=== PATIENT | female | born 1990 | race American Indian/Alaskan Native ===

== ENCOUNTER 2017-12-01 19:18 | Observation (INO) | payer OTHER ==
[2017-12-01] MEDS ORDERED: Sodium Chloride 0.9% 1,000 ML IV STA (20:54)
--- NOTE | 2017-12-01 21:09 | ED PDOC ---
Arrival/HPI - General Chief Complaint: GI Problem Time Seen by Provider: 12/01/17 20:10 Historian: Patient - History of Present Illness Narrative History of Present Illness (Text): 12/01/17 21:08 26 year old female, whose [id number] with a recent 3 days ago, presents to the emergency department complaining of recurrent episodes of vomiting for the past couple weeks. Patient has not been eating, or able to keep anything down. She states she was and has a recent 3 days ago at [place]. Patient was started on antibiotics tetracycline. Also given misoprostol. Patient reports abdominal discomfort secondary to procedure, but denies any fever, chills, chest pain, shortness of breath, urinary symptoms, back pain, neck pain, headache, dizziness, or any other complaints. PMD: Dr. Taz Marcum Time/Duration: Other (couple weeks) Symptom Onset: Gradual Symptom Course: Unchanged Activities at Onset: Light Context: Home Past Medical History - Provider Review Nursing Documentation Reviewed: Yes - Psychiatric Hx Bipolar Disorder: Yes Hx Substance Use: No Family/Social History - Physician Review Nursing Documentation Reviewed: Yes Family/Social History: No Known Family HX Smoking Status: n Hx Alcohol Use: No Hx Substance Use: No Allergies/Home Meds Allergies/Adverse Reactions: Allergies oxcarbazepine [From Trileptal] Allergy (Verified 12/01/17 19:52) RASH quetiapine [From Seroquel] Allergy (Verified 12/01/17 19:52) RASH Home Medications: Home Meds Medication Instructions Recorded Confirmed No Known Home Med 12/01/17 12/01/17 Review of Systems - Physician Review All systems were reviewed & negative as marked: Yes - Review of Systems Constitutional: absent: Fevers, Other (Chills) Respiratory: absent: SOB Cardiovascular: absent: Chest Pain Gastrointestinal: Abdominal Pain, Vomiting. absent: Diarrhea Genitourinary Female: absent: Dysuria, Frequency, Hematuria Musculoskeletal: absent: Back Pain, Neck Pain Neurological: absent: Headache, Dizziness Physical Exam Vital Signs Reviewed: Yes Vital Signs Temp Pulse Resp BP Pulse Ox 12/01/17 23:41 67 17 139/76 100 12/01/17 19:43 98.2 F 66 18 133/68 99 Temperature: Afebrile Blood Pressure: Normal Pulse: Regular Respiratory Rate: Normal Appearance: Positive for: Well-Appearing, Non-Toxic, Comfortable Pain Distress: None Mental Status: Positive for: Alert and Oriented X 3 - Systems Exam Head: Present: Atraumatic, Normocephalic Pupils: Present: PERRL Extroacular Muscles: Present: EOMI Conjunctiva: Present: Normal Mouth: Present: Dry Neck: Present: Normal Range of Motion Respiratory/Chest: Present: Clear to Auscultation, Good Air Exchange. No: Respiratory Distress, Accessory Muscle Use Cardiovascular: Present: Regular Rate and Rhythm, Normal S1, S2. No: Murmurs Abdomen: Present: Tenderness (Minimal tenderness of the lower abdomen ), Normal Bowel Sounds. No: Distention, Peritoneal Signs, Rebound, Guarding Back: Present: Normal Inspection Upper Extremity: Present: Normal Inspection. No: Cyanosis, Edema Lower Extremity: Present: Normal Inspection. No: Edema Neurological: Present: GCS=15, CN II-XII Intact, Speech Normal Skin: Present: Warm, Dry, Normal Color. No: Rashes Psychiatric: Present: Alert, Oriented x 3, Normal Insight, Normal Concentration Medical Decision Making ED Course and Treatment: 12/01/17 21:08 Impression: 26 year old female presents complaining of recurrent episodes of vomiting and abdominal discomfort secondary to recent 3 days ago. Pt is [id number]. Plan: -- Labs -- Pepcid, IV Fluids, Zofran Inj -- Influenza A B -- Transvaginal US -- Reassess and disposition Progress Notes: EXAM: US Pelvis Complete, Transabdominal Dictated and Authenticated by: Sudhir Velez MD 12/01/2017 11:30 PM IMPRESSION: 1. Thickened, heterogeneous endometrium. RPOC not excluded. 12/02/17 00:42 Case discussed with resident and Dr. Heredia who is aware and agrees with the plan. Accepts patient into his service. 12/02/17 00:52 EKG shows NSR at 65 BPM normal EKG. Interpreted by me. - Lab Interpretations Lab Results: 12/01/17 21:00 12/01/17 21:00 Lab Results 12/01/17 21:00: Beta HCG, Quant 2020.30 H 12/01/17 21:00: WBC 15.8 H, RBC 4.66, Hgb 14.1, Hct 40.7, MCV 87.3, MCH 30.3, MCHC 34.6, RDW 13.1, Plt Count 300, MPV 9.1 12/01/17 21:00: Sodium 140, Potassium 2.7 L*, Chloride 98, Carbon Dioxide 28, Anion Gap 17, BUN 12, Creatinine 0.7, Est GFR ( Amer) > 60, Est GFR (Non- Af Amer) > 60, Random Glucose 110, Calcium 9.7, Total Bilirubin 1.2, AST 22, ALT 38, Alkaline Phosphatase 64, Total Protein 7.8, Albumin 4.2, Globulin 3.5, Albumin/Globulin Ratio 1.2, Lipase 72 12/01/17 21:00: Influenza Typ A,B (EIA) Negative for flu a/b I have reviewed the lab results: Yes - RAD Interpretation Radiology Orders: 12/01/17 20:53 PELVIS ULTRASOUND [US] Stat - Medication Orders Current Medication Orders: Potassium Chloride (Potassium Chloride 20 Meq/100 Ml) 20 meq in 100 mls @ 50 mls/hr IV ONCE ONE Stop: 12/02/17 02:34 Piperacillin Sod/Tazobactam Sod (Zosyn 3.375 In Ns 100ml) 100 mls @ 200 mls/hr IV STAT STA PRN Reason: Protocol Stop: 12/02/17 01:07 Discontinued Medications Famotidine (Pepcid) 20 mg IVP STAT STA Stop: 12/01/17 20:55 Last Admin: 12/01/17 21:38 Dose: 20 mg IVP Administration Document 12/01/17 21:38 IT (Rec: 12/01/17 21:38 IT [id number]) Charges for Administration # of IVP Administrations 1 Sodium Chloride (Sodium Chloride 0.9%) 1,000 mls @ 999 mls/hr IV .Q1H1M STA Stop: 12/01/17 21:54 Last Admin: 12/01/17 21:34 Dose: 999 mls/hr eMAR Start Stop Document 12/01/17 21:34 IT (Rec: 12/01/17 21:34 IT [id number]) Intravenous Solution Start Date 12/01/17 Start Time 21:34 Potassium Chloride (Potassium Chloride 20 Meq/100 Ml) 20 meq in 100 mls @ 50 mls/hr IV ONCE ONE Stop: 12/02/17 00:19 Last Admin: 12/01/17 22:32 Dose: 50 mls/hr eMAR Start Stop Document 12/01/17 22:32 IT (Rec: 12/01/17 22:34 IT [id number]) Intravenous Solution Start Date 12/01/17 Start Time 22:34 End Date 12/01/17 Ondansetron HCl (Zofran Inj) 4 mg IVP ONCE ONE Stop: 12/01/17 20:55 Last Admin: 12/01/17 21:38 Dose: 4 mg IVP Administration Document 12/01/17 21:38 IT (Rec: 12/01/17 21:38 IT [id number]) Charges for Administration # of IVP Administrations 1 - Scribe Statement The provider has reviewed the documentation as recorded by the Dudley Quach Provider Scribe Attestation: All medical record entries made by the Scribe were at my direction and personally dictated by me. I have reviewed the chart and agree that the record accurately reflects my personal performance of the history, physical exam, medical decision making, and the department course for this patient. I have also personally directed, reviewed, and agree with the discharge instructions and disposition. Disposition/Present on Arrival - Present on Arrival Any Indicators Present on Arrival: No History of DVT/PE: No History of Uncontrolled Diabetes: No Urinary Catheter: No History of Decub. Ulcer: No History Surgical Site Infection Following: None - Disposition Have Diagnosis and Disposition been Completed?: Yes Diagnosis: Intractable vomiting, Hypokalemia, Dehydration Disposition: HOSPITALIZED Disposition Time: 00:47 Patient Plan: Admission Patient Problems: Current Active Problems Problem Status Onset Dehydration Acute Hypokalemia Acute Intractable vomiting Acute Condition: STABLE Referrals: Vivi Marcum MD [Primary Care Provider] - Follow up with primary Forms: Myer (Hebrew)
[2017-12-01 21:32] LABS: HEMOGLOBIN 14.1 g/dL (12.0-16.0); MEAN CELL VOLUME 87.3 fl (80.0-105.0); MEAN CORPUSCULAR HEMOGLOBIN 30.3 pg (25.0-35.0); MEAN CORPUSCULAR HGB CONC 34.6 g/dl (31.0-37.0); MEAN PLATELET VOLUME 9.1 fl (7.0-11.0); RBC 4.66 10^6/uL (3.5-6.1); RED CELL DISTRIBUTION WIDTH 13.1 % (11.5-14.5); WHITE BLOOD COUNT 15.8 10^3/ul (4.5-11.0)
[2017-12-01 22:04] LABS: ALB/GLOB RATIO 1.2 (1.1-1.8); ALBUMIN 4.2 g/dL (3.0-4.8); ALT/SGPT 38 U/L (7-56); AST/SGOT 22 U/L (14-36); BLOOD UREA NITROGEN 12 mg/dL (7-21); CALCIUM 9.7 mg/dL (8.4-10.5); GFR AFRICAN-AMERICAN > 60; GFR NON-AFRICAN AMERICAN > 60; LIPASE 72 U/L (23-300)
--- NOTE | 2017-12-01 23:30 | US ---
EXAM: US Pelvis Complete, Transabdominal CLINICAL HISTORY: 26 years old, female; Signs and symptoms; Other: Bleeding clots S/P top 4 days; Additional info: S/P elective TECHNIQUE: Real-time transabdominal pelvic ultrasound (complete) with image documentation. COMPARISON: No relevant prior studies available. FINDINGS: Uterus/cervix: Uterus measures 9.1 x 6.6 x 8.6 cm in size. No myometrial mass. Endometrium: Up to 2.2 cm in thickness. Heterogeneous. No significant internal vascularity. Right ovary: 3.4 x 2.5 x 3.0 cm in size. No mass. Normal flow. Left ovary: 2.7 x 2.2 x 3.2 cm in size. No mass. Normal flow. Free fluid: No significant free fluid. Bladder: Unremarkable as visualized. IMPRESSION: 1. Thickened, heterogeneous endometrium. RPOC not excluded.
[2017-12-02] MEDS ORDERED: Piperacillin/Tazobact 3.375 gm 100 ML IV STA (00:38)
--- NOTE | 2017-12-02 02:02 | CP.PCM.HP ---
<Rajesh Roberson - Last Filed: 12/02/17 02:38> History of Present Illness - History of Present Illness History of Present Illness: Rosalinda Roberson PGY-1 H&P CC: Nausea and vomiting HPI: Patient is a 26 year old female [id number] who presents with a 3 to 4 week history of intractable nausea and vomiting. Patient reports that beginning 3 to 4 weeks ago she began experiencing nausea and vomiting yellow to clear non bilious vomit. She reports being unable to keep either fluids or food down. She indicates that at the onset of her symptoms she was . Patient reports 3 days prior to arrival she [place] [facility] indicated this is her sixth . She reports no complications after procedure. Patient denies any previous similar episodes of nausea and vomiting or other complications following previous elective abortions. Patient reports abdominal discomfort secondary to procedure and continued contraction of muscles from vomiting. Patient reports subjective fever , chills and sore throat. Patient denies hemetemesis or coffee ground emesis. Patient denies chest pain, shortness of breath, dysuria, headache, dizziness. PMH: Denies PSH: Abortionx6, most recent 11/28/2016 SocHx: Denies tobacco and ETOH, ID: Postive THC ALL: Seroquel, Trilleptal reports urticaria Meds: Misoprostol, Tetracycline Present on Admission - Present on Admission Any Indicators Present on Admission: No Review of Systems - Constitutional Constitutional: Chills. absent: Fever, Night Sweats - EENT Eyes: absent: Blurred Vision, Change in Vision Ears: absent: Ear Discharge Nose/Mouth/Throat: Dry Mouth. absent: Epistaxis, Nasal Congestion - Cardiovascular Cardiovascular: absent: Chest Pain, Chest Pain at Rest, Dyspnea - Respiratory Respiratory: absent: Cough, Dyspnea - Gastrointestinal Gastrointestinal: Abdominal Pain, Constipation, Nausea, Vomiting. absent: Belching, Diarrhea - Genitourinary Genitourinary: Hematuria (likely secondary to D&C). absent: Dysuria - Musculoskeletal Musculoskeletal: absent: Arthralgias, Back Pain, Myalgias, Neck Pain - Neurological Neurological: Weakness. absent: Dizziness, Numbness, Focal Weakness - Psychiatric Psychiatric: absent: Anxiety, Depression Past Patient History - Past Social History Smoking Status: n Alcohol: None Drugs: Cannabis - PSYCHIATRIC Hx Bipolar Disorder: Yes Hx Substance Use: No Meds Allergies/Adverse Reactions: Allergies Allergy/AdvReac Type Severity Reaction Status Date / Time oxcarbazepine Allergy RASH Verified 12/01/17 19:52 [From Trileptal] quetiapine [From Seroquel] Allergy RASH Verified 12/01/17 19:52 Physical Exam - Constitutional Appears: Non-toxic - Head Exam Head Exam: ATRAUMATIC, NORMAL INSPECTION, NORMOCEPHALIC - Eye Exam Eye Exam: EOMI, PERRL - ENT Exam ENT Exam: Mucous Membranes Dry - Neck Exam Neck exam: Positive for: Full Rom - Respiratory Exam Respiratory Exam: Clear to Auscultation Bilateral, NORMAL BREATHING PATTERN. absent: Rhonchi, Wheezes - Cardiovascular Exam Cardiovascular Exam: REGULAR RHYTHM, +S1, +S2. absent: Rubs, Systolic Murmur - GI/Abdominal Exam GI & Abdominal Exam: Diminished Bowel Sounds, Soft, Tenderness (diffuse, suprapubic). absent: Guarding, Rigid - Extremities Exam Extremities exam: Positive for: normal inspection. Negative for: pedal edema - Back Exam Back exam: absent: CVA tenderness (L), CVA tenderness (R) - Neurological Exam Neurological exam: Alert, CN II-XII Intact, Oriented x3 Additional comments: motor and sensory grossly intact - Psychiatric Exam Psychiatric exam: Normal Affect, Normal Mood - Skin Skin Exam: Dry, Warm Results - Vital Signs Recent Vital Signs: Last Vital Signs Temp 98.2 F 12/01/17 19:43 Pulse 67 12/01/17 23:41 Resp 17 12/01/17 23:41 BP 139/76 12/01/17 23:41 Pulse Ox 100 12/01/17 23:41 - Labs Result Diagrams: 12/01/17 21:00 12/01/17 21:00 Labs: Laboratory Results - last 24 hr 12/01/17 12/01/17 12/01/17 21:00 21:00 21:00 WBC 15.8 H RBC 4.66 Hgb 14.1 Hct 40.7 MCV 87.3 MCH 30.3 MCHC 34.6 RDW 13.1 Plt Count 300 MPV 9.1 Sodium 140 Potassium 2.7 L* Chloride 98 Carbon Dioxide 28 Anion Gap 17 BUN 12 Creatinine 0.7 Est GFR ( Amer) > 60 Est GFR (Non-Af Amer) > 60 Random Glucose 110 Calcium 9.7 Total Bilirubin 1.2 AST 22 ALT 38 Alkaline Phosphatase 64 Total Protein 7.8 Albumin 4.2 Globulin 3.5 Albumin/Globulin Ratio 1.2 Lipase 72 Beta HCG, Quant Influenza Typ A,B (EIA) Negative for flu a/b 12/01/17 21:00 WBC RBC Hgb Hct MCV MCH MCHC RDW Plt Count MPV Sodium Potassium Chloride Carbon Dioxide Anion Gap BUN Creatinine Est GFR ( Amer) Est GFR (Non-Af Amer) Random Glucose Calcium Total Bilirubin AST ALT Alkaline Phosphatase Total Protein Albumin Globulin Albumin/Globulin Ratio Lipase Beta HCG, Quant 2020.30 H Influenza Typ A,B (EIA) Assessment & Plan - Assessment and Plan (Free Text) Assessment: Patient is a 26 year old female [id number] who presents by with a 3 to 4 week history of intractable nausea and vomiting. Patient reports poor oral intake and constipation with last bowel movement possible 10 days prior to admission. Patient found to be hypokalemic in ED with replacement of potassium. Patient undergoing abdominal CT to r/o obstruction. Patient will be admitted for further medical evaluation and treatment. Plan: 1. Intractable nausea and vomiting - etiology: appendicits vs. obstruction vs. hyperemesis gravidum s/p D&C vs. THC related - Reglan, Zofran - IVF NS @150ml/hr - NPO - TSH, Free T4 - f/u Abdominal and Pelvis CT 2. Hypokalemia - Potassium 2.8 on admit, K 20mg given - 20mg K riders x2 - Mg, Phos - f/u AM labs 3. Abdominal/Suprapubic pain - s/p elective - Abdominal/Pelvis CT r/o obstruction - Toradol 15mg Q6h - ACCESS SERVICES REPRESENTATIVE consult, appreciate recs 4. Leukocytosis - afebrile, VSS - s/p elective - f/u UA GI ppx: Protonix DVT ppx: Alexis score 4, SCD Case and plan discussed with attending - Date & Time Date: 12/02/17 Time: 02:06 <Mau Coburn MD - Last Filed: 12/02/17 11:14> Results - Vital Signs Recent Vital Signs: Last Vital Signs Temp 100.1 F H 12/02/17 06:00 Pulse 77 12/02/17 06:00 Resp 20 12/02/17 06:00 BP 120/75 12/02/17 06:00 Pulse Ox 100 12/02/17 06:00 - Labs Result Diagrams: 12/02/17 07:00 12/02/17 07:00 Labs: Laboratory Results - last 24 hr 12/02/17 12/02/17 12/02/17 07:00 07:00 07:00 WBC 11.6 H D RBC 4.15 Hgb 12.4 Hct 36.5 MCV 88.0 MCH 29.9 MCHC 34.0 RDW 13.2 Plt Count 268 MPV 9.1 Gran % 59.8 Lymph % (Auto) 29.8 Gooding % (Auto) 9.2 H Eos % (Auto) 1.0 L Baso % (Auto) 0.2 Gran # 6.92 H Lymph # (Auto) 3.5 H Gooding # (Auto) 1.1 H Eos # (Auto) 0.1 Baso # (Auto) 0.02 PT 15.0 H INR 1.30 H APTT Sodium 139 Potassium 3.1 L Chloride 103 Carbon Dioxide 27 Anion Gap 13 BUN 9 Creatinine 0.7 Est GFR ( Amer) > 60 Est GFR (Non-Af Amer) > 60 Random Glucose 94 Calcium 8.8 Phosphorus 2.9 Magnesium 2.1 Total Bilirubin 1.4 H AST 25 ALT 33 Alkaline Phosphatase 51 Total Protein 6.5 Albumin 3.4 Globulin 3.1 Albumin/Globulin Ratio 1.1 12/02/17 09:30 WBC RBC Hgb Hct MCV MCH MCHC RDW Plt Count MPV Gran % Lymph % (Auto) Gooding % (Auto) Eos % (Auto) Baso % (Auto) Gran # Lymph # (Auto) Gooding # (Auto) Eos # (Auto) Baso # (Auto) PT INR APTT 29.5 Sodium Potassium Chloride Carbon Dioxide Anion Gap BUN Creatinine Est GFR ( Amer) Est GFR (Non-Af Amer) Random Glucose Calcium Phosphorus Magnesium Total Bilirubin AST ALT Alkaline Phosphatase Total Protein Albumin Globulin Albumin/Globulin Ratio Attending/Attestation - Attestation I have personally seen and examined this patient.: Yes I have fully participated in the care of the patient.: Yes I have reviewed all pertinent clinical information: Yes Notes (Text): -I agree with the above H&P completed by the resident physician with the following additions and/or changes: -The patient is a 26 year old woman, [id number], who is being admitted with 3 weeks of worsening intractable N/V (non-bilious, non-bloody), associated RLQ abdominal pain (worse with cough) and 1 week of constipation (with only minimal passing of gas). She also reports subjective fevers and chills. Of note, 4 days ago, she underwent a reportedly uncomplicated, elective [place] [facility] [place] 10 weeks [place]) (using Misoprostol). Her symptoms remained unchanged after the procedure. MRP CONTROLLER has been consulted for further evaluation. She denies CP, SOB, dysuria or cough. Incidentally, on CT-A/P done this evening, she was found to have acute appendicitis. Therefore, empiric IV Flagyl and Ceftriaxone will be started and the patient will be kept NPO and on IVFs. General surgery has been consulted. Also, her hypokalemia (due to recurrent vomiting) will be replenished with IV KCL.
[2017-12-02] MEDS: Sodium Chloride 0.9% 1,000 ML IV SCH ×2 (02:15→08:28)
--- NOTE | 2017-12-02 02:24 | CT ---
EXAM: CT Abdomen and Pelvis Without Intravenous Contrast CLINICAL HISTORY: 26 years old, female; Signs and symptoms; Nausea; Prior surgery; Surgery type: ; Additional info: R/O obstruction TECHNIQUE: Axial computed tomography images of the abdomen and pelvis without intravenous contrast. All CT scans at this facility use one or more dose reduction techniques, viz.: automated exposure control; ma/kV adjustment per patient size (including targeted exams where dose is matched to indication; i.e. head); or iterative reconstruction technique. Coronal and sagittal reformatted images were created and reviewed. COMPARISON: US - PELVIS ULTRASOUND 2017-12-01 22:42 FINDINGS: Limitations: Lack of intravenous contrast. Motion artifact - mild. Lower thorax: No acute findings. ABDOMEN: Liver: Unremarkable. Gallbladder and bile ducts: No calcified stones. No ductal dilation. Pancreas: Unremarkable. No ductal dilation. Spleen: No splenomegaly. Adrenals: No mass. Kidneys and ureters: Lobulation of kidneys. No renal calculi. No hydronephrosis. Stomach and bowel: No definite mural thickening. No obstruction. Appendix: Enlarged distal appendix, roughly measuring up to 1.5 cm in diameter. Appendicolith. Mild stranding about appendix. PELVIS: Bladder: Unremarkable. No stones. Reproductive: Increased density within endometrial canal, likely hemorrhage/hematoma. ABDOMEN and PELVIS: Intraperitoneal space: Trace free fluid within pelvis. No free air. Bones/joints: No acute fracture. Soft tissues: Unremarkable. Vasculature: Unremarkable. No aneurysm. Lymph nodes: No pathologically enlarged lymph nodes. IMPRESSION: 1. Acute appendicitis. 2. Incidental/non-acute findings are described above.
[2017-12-02] MEDS ORDERED: Morphine 2 mg/ml ISec IVP PRN (02:41)
[2017-12-02] MEDS ORDERED: cefTRIAXone 1 gm 1 GM/100 ML BAG IVPB SCH ×2 (02:45→06:00)
[2017-12-02] MEDS: metroNIDAZOLE IV 500 mg/100 ml 500 MG/100 ML BAG IVPB SCH ×4 (03:27→20:59)
[2017-12-02 05:03] LABS: FREE T4 1.15 ng/dL (0.78-2.19)
--- NOTE | 2017-12-02 05:38 | CP.PCM.CON ---
<Jeremy Hoffman - Last Filed: 12/02/17 05:40> History of Present Illness - History of Present Illness History of Present Illness: Surgery: Dr. Pérez CC: Abd pain HPI: 26F [id number] w. recent 3 days ago, presents w. lower abd pain x 3 weeks. Pt states that the pain has been constant and described as a burning pain. The pain radiates to her back. She denies any alleviating or aggravating factors. The pain has been accompanied by multiple episodes of N/V and occasional diarrhea. She reports decreased appetite. She states that she been to the hospital 3xs in the past week and a half but was only given zofran and CT was done due to her being . CT scan was done in ED upon this admission and showed an enlarged appendix w. a fecalith. PMH: none PSH: none Meds: none ALL: seroqeul, oxcarbazepine Social: +Marijuana, no ETOH/tobacco Fhx: Non-contributory Review of Systems - Review of Systems All systems: reviewed and no additional remarkable complaints except (HPI) Past Patient History - Past Social History Smoking Status: Current Some Days Smoker - CARDIAC Hx Cardiac Disorders: No (denies) - PULMONARY Hx Respiratory Disorders: No (denies) - NEUROLOGICAL Hx Neurological Disorder: No (denies) - HEENT Hx HEENT Problems: No (denies) - RENAL Hx Chronic Kidney Disease: No (denies) - ENDOCRINE/METABOLIC Hx Endocrine Disorders: No (denies) - HEMATOLOGICAL/ONCOLOGICAL Hx Blood Disorders: No (denies) - INTEGUMENTARY Hx Dermatological Problems: No (denies) - MUSCULOSKELETAL/RHEUMATOLOGICAL Hx Falls: No - GASTROINTESTINAL Hx Gastrointestinal Disorders: No (denies) - GENITOURINARY/GYNECOLOGICAL Hx Genitourinary Disorders: No ( x3) - PSYCHIATRIC Hx Substance Use: No - SURGICAL HISTORY Hx Surgeries: No (denies) Meds Allergies/Adverse Reactions: Allergies Allergy/AdvReac Type Severity Reaction Status Date / Time oxcarbazepine Allergy RASH Verified 12/01/17 19:52 [From Trileptal] quetiapine [From Seroquel] Allergy RASH Verified 12/01/17 19:52 - Medications Medications: Current Medications Potassium Chloride (Potassium Chloride 20 Meq/100 Ml) 20 meq in 100 mls @ 50 mls/hr IVPB Q2H [facility] Stop: 12/02/17 05:44 Last Admin: 12/02/17 03:39 Dose: 50 mls/hr Sodium Chloride (Sodium Chloride 0.9%) 1,000 mls @ 150 mls/hr IV .Q6H40M [facility] Last Admin: 12/02/17 02:15 Dose: 150 mls/hr Metronidazole (Flagyl) 500 mg in 100 mls @ 100 mls/hr IVPB Q8 [facility] PRN Reason: Protocol Last Admin: 12/02/17 05:00 Dose: Not Given Ceftriaxone Sodium (Rocephin 1 Gram Ivpb) 1 gm in 100 mls @ 100 mls/hr IVPB DAILY [facility] PRN Reason: Protocol Metoclopramide HCl (Reglan) 10 mg IVP Q8 [facility] Last Admin: 12/02/17 05:00 Dose: Not Given Morphine Sulfate (Morphine) 2 mg IVP Q4 PRN PRN Reason: Pain, severe (8-10) Ondansetron HCl (Zofran Inj) 4 mg IVP Q4H PRN PRN Reason: Nausea/Vomiting Pantoprazole Sodium (Protonix Inj) 40 mg IVP DAILY [facility] Physical Exam - Constitutional Appears: Non-toxic, No Acute Distress - Head Exam Head Exam: ATRAUMATIC, NORMOCEPHALIC - Eye Exam Eye Exam: EOMI Pupil Exam: PERRL - ENT Exam ENT Exam: Mucous Membranes Moist, Normal External Ear Exam - Respiratory Exam Respiratory Exam: NORMAL BREATHING PATTERN. absent: Accessory Muscle Use, Respiratory Distress - GI/Abdominal Exam GI & Abdominal Exam: Rebound, Soft, Tenderness (RLQ). absent: Distended, Firm, Guarding, Rigid - Extremities Exam Extremities exam: Negative for: calf tenderness, pedal edema - Neurological Exam Neurological exam: Alert, Oriented x3 - Psychiatric Exam Psychiatric exam: Normal Affect, Normal Mood - Skin Skin Exam: Dry, Normal Color, Warm Results - Vital Signs Recent Vital Signs: Last Vital Signs Temp 99.4 F 12/02/17 04:00 Pulse 83 12/02/17 04:00 Resp 18 12/02/17 04:00 BP 144/78 12/02/17 02:57 Pulse Ox 99 12/02/17 04:00 - Labs Result Diagrams: 12/01/17 21:00 12/01/17 21:00 - Imaging and Cardiology CT scan - chest Status: Image reviewed by me, Report reviewed by me Assessment & Plan - Assessment and Plan (Free Text) Assessment: 26F w. appendicitis -will need OR, timing to be determined -correct electrolytes -IVF -abx -pain meds -will d/w attending Dalton PGY3 <Chandu Pérez - Last Filed: 12/05/17 14:45> Results - Vital Signs Recent Vital Signs: Last Vital Signs Temp 97.2 F L 12/03/17 11:56 Pulse 69 12/03/17 18:00 Resp 18 12/03/17 11:56 BP 138/83 12/03/17 11:56 Pulse Ox 99 12/03/17 11:56 - Labs Result Diagrams: 12/03/17 06:30 12/03/17 06:30 Attending/Attestation - Attestation I have personally seen and examined this patient.: Yes I have fully participated in the care of the patient.: Yes I have reviewed all pertinent clinical information: Yes Notes (Text): Pt was seen and examined at beside Agree with above note and assessment Pt with RLQ pain and tenderness Pt is s/p recent Labs and radiology reviewed Ass: Acute appendicitis with leucocytosis Plan : OR for Lap Appendectomy possible Open Consent IV antibiotics Plan d.w pt in detail Risk and benefit explained in detail.
[2017-12-02 07:31] LABS: INR 1.3 (0.93-1.08)
[2017-12-02 07:34] LABS: BASO # 0.02 K/mm3 (0.0-2.0); BASO % 0.2 % (0.0-3.0); EOS # 0.1 (0.0-0.7); GRAN # 6.92 (1.4-6.5); GRAN % 59.8 % (50.0-68.0); HEMOGLOBIN 12.4 g/dL (12.0-16.0); LYMPH # 3.5 (1.2-3.4); LYMPH % 29.8 % (22.0-35.0); MEAN CORPUSCULAR HEMOGLOBIN 29.9 pg (25.0-35.0); MEAN PLATELET VOLUME 9.1 fl (7.0-11.0); MONO # 1.1 (0.1-0.6); MONO % 9.2 % (1.0-6.0); RBC 4.15 10^6/uL (3.5-6.1); RED CELL DISTRIBUTION WIDTH 13.2 % (11.5-14.5); WHITE BLOOD COUNT 11.6 10^3/ul (4.5-11.0)
[2017-12-02 07:47] LABS: ALB/GLOB RATIO 1.1 (1.1-1.8); ALBUMIN 3.4 g/dL (3.0-4.8); ALT/SGPT 33 U/L (7-56); AST/SGOT 25 U/L (14-36); BLOOD UREA NITROGEN 9 mg/dL (7-21); CALCIUM 8.8 mg/dL (8.4-10.5); GFR AFRICAN-AMERICAN > 60; GFR NON-AFRICAN AMERICAN > 60
[2017-12-02] MEDS: Potassium Chloride 20 mEq ER Tab PO STA ×2 (08:15→08:27)
[2017-12-02] MEDS ORDERED: Potassium Chloride 40 mEq/30 ml LIQ UD PO ONE ×2 (08:58→18:09)
[2017-12-02] MEDS: cefTRIAXone 1 gm 1 GM/100 ML BAG IVPB SCH (09:46)
[2017-12-02 11:35] LABS: URINE BILIRUBIN SMALL (NEGATIVE); URINE BLOOD LARGE (NEGATIVE); URINE GLUCOSE (UA) NEGATIVE (NEGATIVE); URINE LEUKOCYTE ESTERASE TRACE Leu/uL (NEGATIVE); URINE PROTEIN 30 mg/dL (<30 mg/dL)
[2017-12-02 11:38] LABS: URINE APPEARANCE CLEAR (CLEAR); URINE COLOR DARK YELLOW (YELLOW)
[2017-12-02 11:46] LABS: URINE RBC 25 - 30 /hpf (0-2)
[2017-12-02 11:47] LABS: URINE BACTERIA MANY (NEG)
[2017-12-02 12:04] LABS: BLOOD UREA NITROGEN 8 mg/dL (7-21); CALCIUM 9.1 mg/dL (8.4-10.5); GFR AFRICAN-AMERICAN > 60; GFR NON-AFRICAN AMERICAN > 60
--- NOTE | 2017-12-02 12:32 | CARD ---
APPROVED REPORT EKG Measurement Heart [id number] CT [id number] [id number] <Conclusion> Normal sinus rhythm Minimal voltage criteria for LVH, may be normal variant Borderline ECG
[2017-12-02 15:33] LABS: BLOOD UREA NITROGEN 6 mg/dL (7-21); CALCIUM 9.4 mg/dL (8.4-10.5); GFR AFRICAN-AMERICAN > 60; GFR NON-AFRICAN AMERICAN > 60
[2017-12-02] MEDS ORDERED: Bupivacaine 0.5% Inj(30mL) ONE (15:45)
[2017-12-02] MEDS ORDERED: Propofol 10 mg/ml Inj (20 ML) ONE ×2 (16:28→17:37)
[2017-12-02] MEDS ORDERED: Rocuronium 10 mg/ml (5 ml) ONE (16:28)
[2017-12-02] MEDS ORDERED: Succinylcholine 200 mg/10 ml Inj IV ONE (16:28)
[2017-12-02] MEDS ORDERED: Midazolam 2 MG/2 ML VIAL ONE (16:29)
[2017-12-02] MEDS ORDERED: Neostigmine Methylsulfate 3mg/3ml Syringe IV ONE (17:30)
[2017-12-02] MEDS ORDERED: HYDROmorphone 0.5 mg/0.5 ml ISec IVP PRN (18:01)
--- NOTE | 2017-12-02 18:01 | PCM.SURG1 ---
Surgeon's Initial Post Op Note - Surgeon's Notes Surgeon: Dr. Pérez Portfolio Mgr: fransico Villanueva PGY2 Type of Anesthesia: General Endo, Local Pre-Operative Diagnosis: Acute appendicitis Operative Findings: small amount of pelvic fluids. Inflammged appendix. Appendicolith Post-Operative Diagnosis: Acute appendicitis Operation Performed: Laparoscopic appendectomy Specimen/Specimens Removed: appendix Estimated Blood Loss: EBL {In ML}: 10 Blood Products Given: N/A Drains Used: No Drains Post-Op Condition: Good Date of Surgery/Procedure: 12/02/17 Time of Surgery/Procedure: 18:01
[2017-12-02] MEDS ORDERED: Morphine 4 mg/ml ISec IVP PRN (18:02)
[2017-12-02] MEDS ORDERED: DiphenhydrAMINE 50 mg/ml Inj IVP STA ×2 (20:40→20:47)
[2017-12-03] MEDS: Oxycodone/Acetaminophen 5/325 mg Tab PO PRN ×2 (00:46→11:34)
[2017-12-03] MEDS: metroNIDAZOLE IV 500 mg/100 ml 500 MG/100 ML BAG IVPB SCH ×2 (05:24→16:59)
[2017-12-03 06:59] VITALS: RESP 18; O2SAT 99
[2017-12-03 07:16] LABS: HEMOGLOBIN 12.9 g/dL (12.0-16.0); MEAN CELL VOLUME 89.1 fl (80.0-105.0); MEAN CORPUSCULAR HEMOGLOBIN 29.9 pg (25.0-35.0); MEAN CORPUSCULAR HGB CONC 33.6 g/dl (31.0-37.0); MEAN PLATELET VOLUME 9.2 fl (7.0-11.0); RBC 4.31 10^6/uL (3.5-6.1); RED CELL DISTRIBUTION WIDTH 13.4 % (11.5-14.5)
[2017-12-03 07:32] LABS: BLOOD UREA NITROGEN 6 mg/dL (7-21); CALCIUM 9.2 mg/dL (8.4-10.5); GFR AFRICAN-AMERICAN > 60; GFR NON-AFRICAN AMERICAN > 60
[2017-12-03] MEDS ORDERED: Potassium Chloride 40 mEq/30 ml LIQ UD PO ONE (07:36)
--- NOTE | 2017-12-03 08:36 | CARD ---
APPROVED REPORT EKG Measurement Heart [id number] <Conclusion> Unusual P axis and short [place], probable junctional rhythm
[2017-12-03] MEDS ORDERED: Potassium Chloride 20 mEq ER Tab PO STA (08:47)
[2017-12-03] MEDS: cefTRIAXone 1 gm 1 GM/100 ML BAG IVPB SCH (09:11)
[2017-12-03] MEDS: POLYETHYLENE GLYCOL 3350 17 GM/Dose PACKET PO SCH ×2 (09:20→16:59)
--- NOTE | 2017-12-03 11:11 | CP.PCM.PN ---
<Don Villanueva - Last Filed: 12/03/17 11:06> Subjective - Date & Time of Evaluation Date of Evaluation: 12/03/17 Time of Evaluation: 11:07 - Subjective Subjective: Surgery Pt s&e. Pt underwent surgery yesterday. She tolerated it well. C/O pain. Controlled with pain med. Denies F/C/N/V/D/CP/SOB. + void. + Tolerating diet. + ambulating. Objective - Vital Signs/Intake and Output Vital Signs (last 24 hours): Temp Pulse Resp BP Pulse Ox 98.5 F 77 18 127/57 L 99 12/03/17 06:00 12/03/17 10:00 12/03/17 06:00 12/03/17 06:00 12/03/17 06:00 Intake and Output: 12/03/17 12/03/17 06:59 18:59 Intake Total 1675 120 Output Total 600 Balance 1675 -480 - Medications Medications: Current Medications Docusate Sodium (Colace) 100 mg PO BID [facility] Last Admin: 12/03/17 09:11 Dose: 100 mg Metronidazole (Flagyl) 500 mg in 100 mls @ 100 mls/hr IVPB Q8 [facility] PRN Reason: Protocol Last Admin: 12/03/17 05:24 Dose: 100 mls/hr Ceftriaxone Sodium (Rocephin 1 Gram Ivpb) 1 gm in 100 mls @ 100 mls/hr IVPB DAILY [facility] PRN Reason: Protocol Last Admin: 12/03/17 09:11 Dose: 100 mls/hr Potassium Chloride 20 meq/ (Sodium Chloride) 1,010 mls @ 125 mls/hr IV .Q8H5M [facility] Last Admin: 12/03/17 06:35 Dose: 125 mls/hr Ondansetron HCl (Zofran Inj) 4 mg IVP Q4H PRN PRN Reason: Nausea/Vomiting Last Admin: 12/02/17 10:35 Dose: 4 mg Oxycodone/Acetaminophen (Percocet 5/325 Mg Tab) 2 tab PO Q4H PRN PRN Reason: Pain, Mild (1-3) Stop: 12/05/17 18:04 Last Admin: 12/03/17 00:46 Dose: 2 tab Pantoprazole Sodium (Protonix Inj) 40 mg IVP DAILY [facility] Last Admin: 12/03/17 09:11 Dose: 40 mg Polyethylene Glycol (Miralax) 17 gm PO BID [facility] Last Admin: 12/03/17 09:20 Dose: 17 gm - Labs Labs: 12/03/17 06:30 12/03/17 06:30 PT 15.0 SECONDS (9.4-12.5) H 12/02/17 07:00 INR 1.30 (0.93-1.08) H 12/02/17 07:00 APTT 29.5 Seconds (25.1-36.5) 12/02/17 09:30 - Constitutional Appears: No Acute Distress - Head Exam Head Exam: ATRAUMATIC, NORMAL INSPECTION, NORMOCEPHALIC - Eye Exam Eye Exam: EOMI, Normal appearance, PERRL Pupil Exam: NORMAL ACCOMODATION, PERRL - ENT Exam ENT Exam: Mucous Membranes Moist, Normal Exam - Neck Exam Neck Exam: Full ROM, Normal Inspection. absent: Lymphadenopathy - Respiratory Exam Respiratory Exam: Clear to Ausculation Bilateral, NORMAL BREATHING PATTERN - Cardiovascular Exam Cardiovascular Exam: REGULAR RHYTHM, +S1, +S2. absent: Murmur - GI/Abdominal Exam GI & Abdominal Exam: Soft, Tenderness, Normal Bowel Sounds. absent: Distended, Firm, Guarding, Rigid, Hernia, Mass, Organomegaly, Pulsatile Mass, Rebound - Extremities Exam Extremities Exam: Full ROM, Normal Capillary Refill, Normal Inspection. absent : Joint Swelling, Pedal Edema - Back Exam Back Exam: NORMAL INSPECTION - Neurological Exam Neurological Exam: Alert, Awake, CN II-XII Intact, Normal Gait, Oriented x3 - Psychiatric Exam Psychiatric exam: Normal Affect, Normal Mood - Skin Skin Exam: Dry, Intact, Normal Color, Warm Assessment and Plan - Assessment and Plan (Free Text) Assessment: POD 1 s/p lap appy Plan: Clear for DC for surgical standpoint FOllow up with Dr. Pérez in 1-2 weeks Take ABX with meal for 7 days. Ok to take shower. Take bandaid off Keep steristrips on No heavy lifting for [address] Pérez <Chandu Pérez - Last Filed: 12/05/17 14:49> Objective - Vital Signs/Intake and Output Vital Signs (last 24 hours): Temp Pulse Resp BP Pulse Ox 97.2 F L 69 18 138/83 99 12/03/17 11:56 12/03/17 18:00 12/03/17 11:56 12/03/17 11:56 12/03/17 11:56 - Labs Labs: 12/03/17 06:30 12/03/17 06:30 PT 15.0 SECONDS (9.4-12.5) H 12/02/17 07:00 INR 1.30 (0.93-1.08) H 12/02/17 07:00 APTT 29.5 Seconds (25.1-36.5) 12/02/17 09:30 Attending/Attestation - Attestation I have fully participated in the care of the patient.: Yes I have reviewed all pertinent clinical information, including history, physical exam and plan: Yes Notes (Text): Pt is improving clinically Reg diet DC home with Po cipro and flagyl for 1 week f.u as out pt Local wound care Plan d/w primary team.
[2017-12-03 11:57] VITALS: BP 138/83; TEMP 97.2
--- NOTE | 2017-12-03 13:48 | CP.PCM.DIS ---
<Jarrett Castillo - Last Filed: 12/05/17 13:57> Provider - Provider Date of Admission: 12/02/17 00:48 Attending physician: Jo-Ann Galvez MD Primary care physician: Vivi Marcum MD Consults: Surgery: Justus Cnc Technician: Domingo Time Spent in preparation of Discharge (in minutes): 70 Hospital Course - Lab Results Lab Results: Micro Results 12/02/17 01:08 Blood Blood Culture - Preliminary NO GROWTH AFTER 24 HOURS Most Recent Lab Values WBC 10.0 10^3/ul (4.5-11.0) 12/03/17 06:30 RBC 4.31 10^6/uL (3.5-6.1) 12/03/17 06:30 Hgb 12.9 g/dL (12.0-16.0) 12/03/17 06:30 Hct 38.4 % (36.0-48.0) 12/03/17 06:30 MCV 89.1 fl (80.0-105.0) 12/03/17 06:30 MCH 29.9 pg (25.0-35.0) 12/03/17 06:30 MCHC 33.6 g/dl (31.0-37.0) 12/03/17 06:30 RDW 13.4 % (11.5-14.5) 12/03/17 06:30 Plt Count 261 10^3/uL (120.0-450.0) 12/03/17 06:30 MPV 9.2 fl (7.0-11.0) 12/03/17 06:30 Gran % 59.8 % (50.0-68.0) 12/02/17 07:00 Lymph % (Auto) 29.8 % (22.0-35.0) 12/02/17 07:00 [place] % (Auto) 9.2 % (1.0-6.0) H 12/02/17 07:00 Eos % (Auto) 1.0 % (1.5-5.0) L 12/02/17 07:00 Baso % (Auto) 0.2 % (0.0-3.0) 12/02/17 07:00 Gran # 6.92 (1.4-6.5) H 12/02/17 07:00 Lymph # (Auto) 3.5 (1.2-3.4) H 12/02/17 07:00 [place] # (Auto) 1.1 (0.1-0.6) H 12/02/17 07:00 Eos # (Auto) 0.1 (0.0-0.7) 12/02/17 07:00 Baso # (Auto) 0.02 K/mm3 (0.0-2.0) 12/02/17 07:00 PT 15.0 SECONDS (9.4-12.5) H 12/02/17 07:00 INR 1.30 (0.93-1.08) H 12/02/17 07:00 APTT 29.5 Seconds (25.1-36.5) 12/02/17 09:30 Sodium 137 mmol/L (132-148) 12/03/17 06:30 Potassium 3.3 mmol/L (3.6-5.0) L 12/03/17 06:30 Chloride 101 mmol/L (98-107) 12/03/17 06:30 Carbon Dioxide 26 mmol/L (21-33) 12/03/17 06:30 Anion Gap 13 (10-20) 12/03/17 06:30 BUN 6 mg/dL (7-21) L 12/03/17 06:30 Creatinine 0.6 mg/dl (0.7-1.2) L 12/03/17 06:30 Est GFR ( Amer) > 60 12/03/17 06:30 Est GFR (Non-Af Amer) > 60 12/03/17 06:30 Random Glucose 89 mg/dL (70-110) 12/03/17 06:30 Hemoglobin A1c 5.2 % (4.2-6.5) 12/01/17 21:00 Calcium 9.2 mg/dL (8.4-10.5) 12/03/17 06:30 Phosphorus 2.9 mg/dL (2.5-4.5) 12/02/17 07:00 Magnesium 2.1 mg/dL (1.7-2.2) 12/02/17 11:40 Total Bilirubin 1.4 mg/dL (0.2-1.3) H 12/02/17 07:00 AST 25 U/L (14-36) 12/02/17 07:00 ALT 33 U/L (7-56) 12/02/17 07:00 Alkaline Phosphatase 51 U/L (38-126) 12/02/17 07:00 Total Protein 6.5 g/dL (5.8-8.3) 12/02/17 07:00 Albumin 3.4 g/dL (3.0-4.8) 12/02/17 07:00 Globulin 3.1 gm/dL 12/02/17 07:00 Albumin/Globulin Ratio 1.1 (1.1-1.8) 12/02/17 07:00 Lipase 72 U/L (23-300) 12/01/17 21:00 Free T4 1.15 ng/dL (0.78-2.19) 12/01/17 21:00 TSH 3rd Generation 0.60 mIU/mL (0.46-4.68) 12/01/17 21:00 Beta HCG, Quant 1389.70 mIU/mL (0-6.15) H 12/02/17 11:00 Urine Color Dark yellow (YELLOW) 12/02/17 11:00 Urine Appearance Clear (CLEAR) 12/02/17 11:00 Urine pH 7.0 (4.7-8.0) 12/02/17 11:00 Ur Specific [place] 1.025 (1.005-1.035) 12/02/17 11:00 Urine Protein 30 mg/dL (<30 mg/dL) H 12/02/17 11:00 Urine Glucose (UA) Negative mg/dL (NEGATIVE) 12/02/17 11:00 Urine Ketones 15 mg/dL (NEGATIVE) H 12/02/17 11:00 Urine Blood Large (NEGATIVE) H 12/02/17 11:00 Urine Nitrate Negative (NEGATIVE) 12/02/17 11:00 Urine Bilirubin Small (NEGATIVE) H 12/02/17 11:00 Urine Urobilinogen 2.0 E.U./dL (<1 E.U./dL) H 12/02/17 11:00 Ur Leukocyte Esterase Trace Luis Antonio/uL (NEGATIVE) H 12/02/17 11:00 Urine RBC 25 - 30 /hpf (0-2) 12/02/17 11:00 Urine WBC 2 - 5 /hpf (0-6) 12/02/17 11:00 Ur Epithelial Cells 6 - 8 /hpf (0-5) 12/02/17 11:00 Urine Bacteria Many (NEG) 12/02/17 11:00 Influenza Typ A,B (EIA) Negative for flu a/b (NEGATIVE) 12/01/17 21:00 - Hospital Course Hospital Course: Patient is a 26 year old female [id number] who presents by with a 3 to 4 week history of intractable nausea and vomiting. Patient reports poor oral intake and constipation with last bowel movement possible 10 days prior to admission. Patient found to be hypokalemic in ED with replacement of potassium. Patient undergoing abdominal CT to r/o obstruction. Patient was admitted for further medical evaluation and treatment. Patient was found to have acute appendicitis on CT. Patient was given fluids, made NPO and started on antibiotics. Surgery was confuted and patient went for an appendectomy which was done. Cnc Technician was consulted for vaginal bleeding, but patient was not found to have endometriosis. Patients electrolytes were monitored and patient was doing well post op. She was advised to Follow up with [facility]PERATOR as outpatient ,Follow up with Dr. Pérez in 1-2 weeks and Take ABX with meal for 7 days. She was also advised for No heavy lifting for 1 month. Discharge Exam - Head Exam Head Exam: ATRAUMATIC, NORMAL INSPECTION, NORMOCEPHALIC - Eye Exam Eye Exam: EOMI, Normal appearance, PERRL - Respiratory Exam Respiratory Exam: Clear to PA & Lateral, NORMAL BREATHING PATTERN, UNREMARKABLE - Cardiovascular Exam Cardiovascular Exam: REGULAR RHYTHM - GI/Abdominal Exam GI & Abdominal Exam: Normal Bowel Sounds, Tenderness - Neurological Exam Neurological exam: Alert, Oriented x3 Discharge Plan - Discharge Medications Prescriptions: Ciprofloxacin [Cipro] 500 mg PO Q12 #14 tab metroNIDAZOLE [Flagyl] 500 mg PO Q8 #21 tab oxyCODONE/Acetaminophen [Percocet 5/325 mg Tab] 1 tab PO Q6H PRN #12 tab PRN Reason: Pain, Severe (8-10) - Follow Up Plan Condition: STABLE Disposition: HOME/ ROUTINE Instructions: Dehydration, Adult (DC), Hypokalemia (DC), Appendectomy, Laparoscopic Surgery, Appendectomy, Laparoscopic Surgery (DC) Additional Instructions: Follow up with [facility] as outpatient FOllow up with Dr. Pérez in 1-2 weeks Take Antibiotics with meal for 7 days. Cipro twice a day. Flagyl 3 times a day. Ok to take shower tomorrow. Take bandaid off Keep steristrips on. No heavy lifting for 1 month Referrals: Chandu Pérez MD [Medical Doctor] - Vivi Marcum MD [Primary Care Provider] - <Jo-Ann Galvez - Last Filed: 12/06/17 09:36> Provider - Provider Date of Admission: 12/02/17 00:48 Attending physician: Jo-Ann Galvez MD Primary care physician: Vivi Marcum MD Hospital Course - Lab Results Lab Results: Micro Results 12/02/17 01:08 Blood Blood Culture - Preliminary NO GROWTH AFTER 3 DAYS Most Recent Lab Values WBC 10.0 10^3/ul (4.5-11.0) 12/03/17 06:30 RBC 4.31 10^6/uL (3.5-6.1) 12/03/17 06:30 Hgb 12.9 g/dL (12.0-16.0) 12/03/17 06:30 Hct 38.4 % (36.0-48.0) 12/03/17 06:30 MCV 89.1 fl (80.0-105.0) 12/03/17 06:30 MCH 29.9 pg (25.0-35.0) 12/03/17 06:30 MCHC 33.6 g/dl (31.0-37.0) 12/03/17 06:30 RDW 13.4 % (11.5-14.5) 12/03/17 06:30 Plt Count 261 10^3/uL (120.0-450.0) 12/03/17 06:30 MPV 9.2 fl (7.0-11.0) 12/03/17 06:30 Gran % 59.8 % (50.0-68.0) 12/02/17 07:00 Lymph % (Auto) 29.8 % (22.0-35.0) 12/02/17 07:00 [place] % (Auto) 9.2 % (1.0-6.0) H 12/02/17 07:00 Eos % (Auto) 1.0 % (1.5-5.0) L 12/02/17 07:00 Baso % (Auto) 0.2 % (0.0-3.0) 12/02/17 07:00 Gran # 6.92 (1.4-6.5) H 12/02/17 07:00 Lymph # (Auto) 3.5 (1.2-3.4) H 12/02/17 07:00 [place] # (Auto) 1.1 (0.1-0.6) H 12/02/17 07:00 Eos # (Auto) 0.1 (0.0-0.7) 12/02/17 07:00 Baso # (Auto) 0.02 K/mm3 (0.0-2.0) 12/02/17 07:00 PT 15.0 SECONDS (9.4-12.5) H 12/02/17 07:00 INR 1.30 (0.93-1.08) H 12/02/17 07:00 APTT 29.5 Seconds (25.1-36.5) 12/02/17 09:30 Sodium 137 mmol/L (132-148) 12/03/17 06:30 Potassium 3.3 mmol/L (3.6-5.0) L 12/03/17 06:30 Chloride 101 mmol/L (98-107) 12/03/17 06:30 Carbon Dioxide 26 mmol/L (21-33) 12/03/17 06:30 Anion Gap 13 (10-20) 12/03/17 06:30 BUN 6 mg/dL (7-21) L 12/03/17 06:30 Creatinine 0.6 mg/dl (0.7-1.2) L 12/03/17 06:30 Est GFR ( Amer) > 60 12/03/17 06:30 Est GFR (Non-Af Amer) > 60 12/03/17 06:30 Random Glucose 89 mg/dL (70-110) 12/03/17 06:30 Hemoglobin A1c 5.2 % (4.2-6.5) 12/01/17 21:00 Calcium 9.2 mg/dL (8.4-10.5) 12/03/17 06:30 Phosphorus 2.9 mg/dL (2.5-4.5) 12/02/17 07:00 Magnesium 2.1 mg/dL (1.7-2.2) 12/02/17 11:40 Total Bilirubin 1.4 mg/dL (0.2-1.3) H 12/02/17 07:00 AST 25 U/L (14-36) 12/02/17 07:00 ALT 33 U/L (7-56) 12/02/17 07:00 Alkaline Phosphatase 51 U/L (38-126) 12/02/17 07:00 Total Protein 6.5 g/dL (5.8-8.3) 12/02/17 07:00 Albumin 3.4 g/dL (3.0-4.8) 12/02/17 07:00 Globulin 3.1 gm/dL 12/02/17 07:00 Albumin/Globulin Ratio 1.1 (1.1-1.8) 12/02/17 07:00 Lipase 72 U/L (23-300) 12/01/17 21:00 Free T4 1.15 ng/dL (0.78-2.19) 12/01/17 21:00 TSH 3rd Generation 0.60 mIU/mL (0.46-4.68) 12/01/17 21:00 Beta HCG, Quant 1389.70 mIU/mL (0-6.15) H 12/02/17 11:00 Urine Color Dark yellow (YELLOW) 12/02/17 11:00 Urine Appearance Clear (CLEAR) 12/02/17 11:00 Urine pH 7.0 (4.7-8.0) 12/02/17 11:00 Ur Specific [place] 1.025 (1.005-1.035) 12/02/17 11:00 Urine Protein 30 mg/dL (<30 mg/dL) H 12/02/17 11:00 Urine Glucose (UA) Negative mg/dL (NEGATIVE) 12/02/17 11:00 Urine Ketones 15 mg/dL (NEGATIVE) H 12/02/17 11:00 Urine Blood Large (NEGATIVE) H 12/02/17 11:00 Urine Nitrate Negative (NEGATIVE) 12/02/17 11:00 Urine Bilirubin Small (NEGATIVE) H 12/02/17 11:00 Urine Urobilinogen 2.0 E.U./dL (<1 E.U./dL) H 12/02/17 11:00 Ur Leukocyte Esterase Trace Luis Antonio/uL (NEGATIVE) H 12/02/17 11:00 Urine RBC 25 - 30 /hpf (0-2) 12/02/17 11:00 Urine WBC 2 - 5 /hpf (0-6) 12/02/17 11:00 Ur Epithelial Cells 6 - 8 /hpf (0-5) 12/02/17 11:00 Urine Bacteria Many (NEG) 12/02/17 11:00 Influenza Typ A,B (EIA) Negative for flu a/b (NEGATIVE) 12/01/17 21:00 Attending/Attestation - Attestation I have personally seen and examined this patient.: Yes I have fully participated in the care of the patient.: Yes I have reviewed all pertinent clinical information, including history, physical exam and plan: Yes Notes (Text): I have seen and examined the patient at bedside. Agree with the note above with the following additions/ exceptions: Briefly this is 26 year female with history of multiple pregnancies who recently had D&C for elective came for evaluation of intractable nausea, vomiting and found to have acute appendicitis. Surgery consult appreciated. Patient underwent laparoscopic appendectomy. Patient will be sent home on po antibiotics. Cnc Technician was consulted and they reviewed pelvis and transvaginal ultrasound. As per brusher hand, patient can follow up with obgyn as an outpatient. Advised patient to follow up with Dr Pérez within few days. Dr Jo-Ann Galvez
[2017-12-03 18:46] VITALS: PULSE 69
--- NOTE | 2017-12-04 07:40 | OP ---
PROCEDURE DATE: 12/02/2017 PREOPERATIVE DIAGNOSES: 1. Acute appendicitis. 2. Leukocytosis. 3. Status post termination of . POSTOPERATIVE DIAGNOSES: 1. Acute appendicitis. 2. Leukocytosis. 3. Status post termination of . 4. Purulent pelvic collection. PROCEDURE DONE: 1. Laparoscopic appendectomy. 2. Laparoscopic drainage of pelvic collection. SURGEON: Chandu Pérez M.D. TANK STORAGE SUPERVISOR: Trish, PGY-2 resident. ANESTHESIA: General endotracheal tube anesthesia. ESTIMATED BLOOD LOSS: Around 10 mL. DRAINS: None. PATHOLOGY: Appendix was sent for the pathology. COMPLICATIONS: None. INTRAOPERATIVE FINDINGS: The patient had acute appendicitis involving the teeth as well as the body of the appendix with a large appendicolith and purulent pelvic collection. DESCRIPTION OF PROCEDURE: On intraoperative steps, this 26-year-old female who was diagnosed with acute appendicitis and the patient was consented for laparoscopic appendectomy, possible open; brought to the OR, placed supine on the operating table. After induction of the anesthesia, the abdomen was prepped and draped in the usual sterile fashion. The supraumbilical transverse incision was made after incising skin, subcutaneous tissue, and the fascia. The Leah port was placed, pneumo was created, another 12-mm port was placed in left lower quadrant, 5-mm port was placed in suprapubic region. The grasper and dissector were introduced and appendix was identified. The patient had purulent pelvic collection as well as the appendix was stuck to the pelvis and appendix was from the pelvic wall and the mesoappendix was resected with the Harmonic scalpel. Base of the appendix was resected with a DWAINE and appendix was taken down, the EndoCatch bag taken out through the umbilical port site and sent off the table for the pathology. The collection was drained and suction irrigation of the pelvis and periappendicular area as well as perihepatic area was done. All the fluid was suctioned out and proper hemostasis was achieved and after that, all the port was taken out under vision and pneumo was deflated. The umbilical port site was closed in 2 layer, the fascia with 0 Vicryl interrupted sutures, skin with 4-0 Monocryl and dry sterile dressing was applied. The patient tolerated the procedure well. Count of the instrument was correct. There was no apparent complication. The patient was extubated in the OR, sent to the Postanesthesia Care Unit in stable condition. Chandu Pérez MD
== END 2017-12-03 18:41 | disposition home or self-care (01) ==
LOC: ED 19:18 → ERH 12-02 00:48 → INTOOBSV 12-02 00:48 → ERH 12-02 01:20 → 3RSO 12-02 01:53
PROVIDERS: ADMIT Internal Medicine; ATTEND Hospitalist
DX: K35.80 Unspecified acute appendicitis (principal); E86.0 Dehydration; E87.6 Hypokalemia; K38.1 Appendicular concretions
CPT/HCPCS: 36415; 44970; 74176; 76856; 80048; 80053; 81001; 83036; 83690; 83735; 84100; 84439; 84443; 84702; 85025; 85027; 85610; 85730; 87040; 87804; 88304; 93005; 96374; 96375; 96376; 99285; C9113; G0378; J0330; J0696; J1200; J1885; J2250; J2270; J2405; J2543; J2704; J2710; J2765; J3010; J3480; J7040

== ENCOUNTER 2018-02-22 21:32 | Emergency (ER) | payer OTHER ==
--- NOTE | 2018-02-22 21:42 | ED PDOC ---
Arrival/HPI - General Time Seen by Provider: 02/22/18 21:38 Historian: Patient - History of Present Illness Narrative History of Present Illness (Text): 02/22/18 21:42 Leia Humphrey is a 27 year old female, whose past medical history includes appendectomy, who presents to the Emergency department complaining of abdominal pain. Patient states she has been experiencing RUQ abdominal pain radiating to her right flank for the past few days. Patient reports associated nausea and vomiting. Patient states pain is worsened with movement. Patient denies any fever, chills, chest pain, shortness of breath, urinary symptoms, neck pain, headache, dizziness, or any other complaints. Symptom Onset: Gradual Symptom Course: Unchanged Activities at Onset: Light Context: Home Past Medical History - Provider Review Nursing Documentation Reviewed: Yes - Cardiac Hx Cardiac Disorders: No (denies) - Pulmonary Hx Respiratory Disorders: No (denies) - Neurological Hx Neurological Disorder: No (denies) - HEENT Hx HEENT Disorder: No (denies) - Renal Hx Renal Disorder: No (denies) - Endocrine/Metabolic Hx Endocrine Disorders: No (denies) - Hematological/Oncological Hx Blood Transfusions: No Hx Blood Transfusion Reaction: No - Integumentary Hx Dermatological Disorder: No (denies) - Musculoskeletal/Rheumatological Hx Falls: No - Gastrointestinal Hx Gastrointestinal Disorders: No (denies) - Genitourinary/Gynecological Hx Genitourinary Disorders: No ( x3) - Psychiatric Hx Substance Use: No - Anesthesia Hx Anesthesia Reactions: No Hx Malignant Hyperthermia: No Family/Social History - Physician Review Nursing Documentation Reviewed: Yes Family/Social History: Unknown Family HX Smoking Status: Current Some Days Smoker Hx Alcohol Use: No Hx Substance Use: No Allergies/Home Meds Allergies/Adverse Reactions: Allergies oxcarbazepine [From Trileptal] Allergy (Verified 02/22/18 21:55) RASH quetiapine [From Seroquel] Allergy (Verified 02/22/18 21:55) RASH Review of Systems - Physician Review All systems were reviewed & negative as marked: Yes - Review of Systems Constitutional: Normal. absent: Fevers Eyes: Normal ENT: Normal Respiratory: Normal. absent: SOB, Cough Cardiovascular: Normal. absent: Chest Pain Gastrointestinal: Abdominal Pain, Nausea, Vomiting. absent: Diarrhea Genitourinary Female: Normal. absent: Dysuria, Frequency, Hematuria, Urine Output Changes Musculoskeletal: Normal. absent: Back Pain, Neck Pain Skin: Normal. absent: Rash Neurological: Normal. absent: Headache, Dizziness Endocrine: Normal Hemo/Lymphatic: Normal Psychiatric: Normal Physical Exam Vital Signs Reviewed: Yes Vital Signs Temp Pulse Resp BP Pulse Ox 02/23/18 01:48 98.2 F 76 17 135/79 100 02/22/18 21:48 98.2 F 62 17 116/62 100 Temperature: Afebrile Blood Pressure: Normal Pulse: Regular Respiratory Rate: Normal Appearance: Positive for: Well-Appearing, Non-Toxic, Comfortable Pain Distress: None Mental Status: Positive for: Alert and Oriented X 3 - Systems Exam Head: Present: Atraumatic, Normocephalic Pupils: Present: PERRL Extroacular Muscles: Present: EOMI Conjunctiva: Present: Normal Mouth: Present: Moist Mucous Membranes Neck: Present: Normal Range of Motion Respiratory/Chest: Present: Clear to Auscultation, Good Air Exchange. No: Respiratory Distress, Accessory Muscle Use Cardiovascular: Present: Regular Rate and Rhythm, Normal S1, S2. No: Murmurs Abdomen: No: Tenderness, Distention, Peritoneal Signs Back: Present: CVA Tenderness (Right CVA tenderness) Upper Extremity: Present: Normal Inspection. No: Cyanosis, Edema Lower Extremity: Present: Normal Inspection. No: Edema Neurological: Present: GCS=15, CN II-XII Intact, Speech Normal Skin: Present: Warm, Dry, Normal Color. No: Rashes Psychiatric: Present: Alert, Oriented x 3, Normal Insight, Normal Concentration Medical Decision Making ED Course and Treatment: 02/22/18 21:42 Impression: 27 year old female complaining of right-sided abdominal pain radiating to her right flank for the past few days. Plan: -- CT Abdomen and Pelvis -- Labs, lipase -- Urinalysis -- IV fluids -- Zofran -- Toradol -- Reassess and disposition Prior Visits: Notes and results from previous visits were reviewed. On 12/01/2017, pt was seen in the Emergency department for abdominal pain, nausea, and multiple episodes of vomiting. Pt was admitted to the hospital for further evaluation and underwent an appendectomy. Progress Notes: 02/23/18 01:12 CT Abdomen and Pelvis shows: LIMITATIONS: Moderate streak/motion artifact. LUNG BASES: No significant abnormality seen. ABDOMEN: LIVER: No acute abnormality of the liver identified. GALLBLADDER AND BILE DUCTS: No CT evidence of acute cholecystitis. No evidence of significant biliary ductal dilatation. PANCREAS: No CT evidence of acute pancreatitis. SPLEEN: No acute abnormality of the spleen identified. ADRENALS: No acute abnormality of the adrenal glands identified. KIDNEYS AND URETERS: No acute abnormality of the kidneys seen. No renal stones, hydronephrosis, or hydroureter seen. STOMACH AND BOWEL: Colonic diverticulosis, with no evidence of acute diverticulitis. Otherwise, no definite abnormality of the bowel is identified, allowing for motion artifact. No evidence of bowel obstruction. PELVIS: APPENDIX: Normal appendix is not seen, and there are postsurgical changes near the cecum, which are likely from prior appendectomy. Recommend clinical correlation. BLADDER: No acute abnormality of the bladder identified. REPRODUCTIVE:No acute abnormality of the reproductive organs is seen. No acute abnormality of the uterus identified. No evidence of large adnexal masses. ABDOMEN and PELVIS: INTRAPERITONEAL SPACE: Tiny amount of free fluid in the cul-de-sac. This is most likely physiologic in nature. No evidence of free air. BONES/JOINTS: No acute fractures or other acute bony abnormality noted. SOFT TISSUES: No acute abnormality of the visualized soft tissues is seen. VASCULATURE: No evidence of abdominal aortic aneurysm. No evidence of periaortic hemorrhage. LYMPH NODES: No evidence of diffuse lymphadenopathy. IMPRESSION: - No evidence of significant acute process on this unenhanced exam, allowing for motion artifact. There is no evidence of nephrolithiasis or obstructive uropathy. - See above for remaining findings. 02/23/18 01:45 On re-evaluation, patient feels better and is in no acute distress. I have discussed the results and plan with the patient, who expresses understanding. Patient in agreement with plan to be discharged home. Patient is stable for discharge. Patient was instructed to follow up with physician or return if symptoms worsen or new concerning symptoms arise. - Lab Interpretations Lab Results: 02/22/18 22:22 02/22/18 22:22 Lab Results 02/22/18 22:22: Sodium 144, Potassium 3.7, Chloride 107, Carbon Dioxide 24, Anion Gap 17, BUN 11, Creatinine 0.7, Est GFR ( Amer) > 60, Est GFR (Non- Af Amer) > 60, Random Glucose 101, Calcium 9.0, Magnesium 1.9, Total Bilirubin 1.5 H, AST 37 H D, ALT 32, Alkaline Phosphatase 62, Total Protein 7.6, Albumin 4.2, Globulin 3.4, Albumin/Globulin Ratio 1.2, Lipase 37 02/22/18 22:22: PT 13.4 H, INR 1.17 H, APTT 28.6 02/22/18 22:22: WBC 6.6 D, RBC 4.37, Hgb 13.0, Hct 38.5, MCV 88.1, MCH 29.7, MCHC 33.8, RDW 13.6, Plt Count 260, MPV 9.7, Gran % 81.1 H, Lymph % (Auto) 10.6 L, [place] % (Auto) 7.7 H, Eos % (Auto) 0.6 L, Baso % (Auto) 0.0, Gran # 5.38, Lymph # (Auto) 0.7 L, [place] # (Auto) 0.5, Eos # (Auto) 0.0, Baso # (Auto) 0.00 02/22/18 22:20: Urine Color Yellow, Urine Appearance Clear, Urine pH 6.0, Ur Specific [place] >= 1.030, Urine Protein 30 H, Urine Glucose (UA) Negative, Urine Ketones 40 H, Urine Blood Moderate H, Urine Nitrate Negative, Urine Bilirubin Small H, Urine Urobilinogen 0.2, Ur Leukocyte Esterase Negative, Urine RBC 10 - 15, Urine WBC 0 - 2, Ur Epithelial Cells 1 - 3, Urine Bacteria Occ I have reviewed the lab results: Yes - RAD Interpretation Radiology Orders: 02/22/18 22:13 ABD & PELVIS W/O PO OR IV CONT [CT] Stat Commercial Sales Specialist: Radiologist - Medication Orders Current Medication Orders: Discontinued Medications Cephalexin Monohydrate (Keflex) 500 mg PO STAT STA PRN Reason: Protocol Stop: 02/23/18 01:22 Last Admin: 02/23/18 01:47 Dose: 500 mg Sodium Chloride (Sodium Chloride 0.9%) 1,000 mls @ 100 mls/hr IV .Q10H STA Stop: 02/23/18 08:05 Last Admin: 02/22/18 22:37 Dose: 100 mls/hr eMAR Start Stop Document 02/22/18 22:37 IT (Rec: 02/22/18 22:37 IT [id number]) Intravenous Solution Start Date 02/22/18 Start Time 22:37 Ketorolac Tromethamine (Toradol) 30 mg IVP ONCE ONE Stop: 02/22/18 22:08 Last Admin: 02/22/18 22:38 Dose: 30 mg MAR Pain Assessment Document 02/22/18 22:38 IT (Rec: 02/22/18 22:38 IT [id number] Pain Reassessment Is this a pain reassessment? No Sleep Is patient sleeping during reassessment? No Presence of Pain Presence of Pain Yes Pain Scale Used Pain Scale Used Numeric Location Left, Right or Bilateral Right Upper or Lower Upper Pain Location Body Site Abdomen IVP Administration Document 02/22/18 22:38 IT (Rec: 02/22/18 22:38 IT [id number] Charges for Administration # of IVP Administrations 1 Ondansetron HCl (Zofran Inj) 4 mg IVP STAT STA Stop: 02/22/18 22:07 Last Admin: 02/22/18 22:38 Dose: 4 mg IVP Administration Document 02/22/18 22:38 IT (Rec: 02/22/18 22:38 IT [id number] Charges for Administration # of IVP Administrations 1 - Scribe Statement The provider has reviewed the documentation as recorded by the Dudley Barkley Provider Scribe Attestation: All medical record entries made by the Scribe were at my direction and personally dictated by me. I have reviewed the chart and agree that the record accurately reflects my personal performance of the history, physical exam, medical decision making, and the department course for this patient. I have also personally directed, reviewed, and agree with the discharge instructions and disposition. Disposition/Present on Arrival - Present on Arrival Any Indicators Present on Arrival: No History of DVT/PE: No History of Uncontrolled Diabetes: No Urinary Catheter: No History Surgical Site Infection Following: None - Disposition Have Diagnosis and Disposition been Completed?: Yes Diagnosis: Flank pain, Urinary tract infection Disposition: HOME/ ROUTINE Disposition Time: 01:45 Condition: GOOD Discharge Instructions (ExitCare): Urinary Tract Infections in Adults, Kidney Infection, Flank Pain (DC) Prescriptions: Cephalexin [Keflex] 500 mg PO BID #14 capsule Referrals: Vivi Marcum MD [Primary Care Provider] - Follow up with primary Forms: [employer] (Slovak)
[2018-02-22 21:49] VITALS: RESP 17; TEMP 98.2; O2SAT 100
[2018-02-22] MEDS ORDERED: Sodium Chloride 0.9% 1,000 ML IV STA (22:06)
[2018-02-22 22:45] LABS: ALB/GLOB RATIO 1.2 (1.1-1.8); ALBUMIN 4.2 g/dL (3.0-4.8); ALT/SGPT 32 U/L (7-56); AST/SGOT 37 U/L (14-36); BLOOD UREA NITROGEN 11 mg/dL (7-21); EOS % 0.6 % (1.5-5.0); GFR AFRICAN-AMERICAN > 60; GFR NON-AFRICAN AMERICAN > 60; GRAN # 5.38 (1.4-6.5); GRAN % 81.1 % (50.0-68.0); LIPASE 37 U/L (23-300); LYMPH # 0.7 (1.2-3.4); LYMPH % 10.6 % (22.0-35.0); MEAN CELL VOLUME 88.1 fl (80.0-105.0); MEAN CORPUSCULAR HEMOGLOBIN 29.7 pg (25.0-35.0); MEAN CORPUSCULAR HGB CONC 33.8 g/dl (31.0-37.0); MEAN PLATELET VOLUME 9.7 fl (7.0-11.0); MONO # 0.5 (0.1-0.6); MONO % 7.7 % (1.0-6.0); RBC 4.37 10^6/uL (3.5-6.1); RED CELL DISTRIBUTION WIDTH 13.6 % (11.5-14.5); WHITE BLOOD COUNT 6.6 10^3/ul (4.5-11.0)
[2018-02-22 22:46] LABS: URINE APPEARANCE CLEAR (CLEAR); URINE BILIRUBIN SMALL (NEGATIVE); URINE BLOOD MODERATE (NEGATIVE); URINE COLOR YELLOW (YELLOW); URINE GLUCOSE (UA) NEGATIVE (NEGATIVE); URINE LEUKOCYTE ESTERASE NEGATIVE Leu/uL (NEGATIVE); URINE PROTEIN 30 mg/dL (<30 mg/dL); URINE UROBILINOGEN 0.2 E.U./dL (<1 E.U./dL)
[2018-02-22 22:50] LABS: INR 1.17 (0.93-1.08); PROTHROMBIN TIME 13.4 SECONDS (9.4-12.5)
[2018-02-22 22:50] LABS: URINE BACTERIA OCC (NEG); URINE WBC 0 - 2 /hpf (0-6)
[2018-02-22 22:51] LABS: PARTIAL THROMBOPLASTIN TIME 28.6 Seconds (25.1-36.5)
--- NOTE | 2018-02-23 01:05 | CT ---
EXAM: CT Abdomen and Pelvis Without Intravenous Contrast EXAM DATE/TIME: 02/22/2018 10:13 PM CLINICAL HISTORY: 27 years old, female; Pain; Abdominal pain; Acute; Additional info: Rt flank pain TECHNIQUE: Axial computed tomography images of the abdomen and pelvis without intravenous contrast. All CT scans at this facility use one or more dose reduction techniques, viz.: automated exposure control; ma/kV adjustment per patient size (including targeted exams where dose is matched to indication; i.e. head); or iterative reconstruction technique. Coronal and sagittal reformatted images were created and reviewed. COMPARISON: Prior CT abdomen pelvis and of 2017-12-02 FINDINGS: LIMITATIONS: Moderate streak/motion artifact. LUNG BASES: No significant abnormality seen. ABDOMEN: LIVER: No acute abnormality of the liver identified. GALLBLADDER AND BILE DUCTS: No CT evidence of acute cholecystitis. No evidence of significant biliary ductal dilatation. PANCREAS: No CT evidence of acute pancreatitis. SPLEEN: No acute abnormality of the spleen identified. ADRENALS: No acute abnormality of the adrenal glands identified. KIDNEYS AND URETERS: No acute abnormality of the kidneys seen. No renal stones, hydronephrosis, or hydroureter seen. STOMACH AND BOWEL: Colonic diverticulosis, with no evidence of acute diverticulitis. Otherwise, no definite abnormality of the bowel is identified, allowing for motion artifact. No evidence of bowel obstruction. PELVIS: APPENDIX: Normal appendix is not seen, and there are postsurgical changes near the cecum, which are likely from prior appendectomy. Recommend clinical correlation. BLADDER: No acute abnormality of the bladder identified. REPRODUCTIVE:No acute abnormality of the reproductive organs is seen. No acute abnormality of the uterus identified. No evidence of large adnexal masses. ABDOMEN and PELVIS: INTRAPERITONEAL SPACE: Tiny amount of free fluid in the cul-de-sac. This is most likely physiologic in nature. No evidence of free air. BONES/JOINTS: No acute fractures or other acute bony abnormality noted. SOFT TISSUES: No acute abnormality of the visualized soft tissues is seen. VASCULATURE: No evidence of abdominal aortic aneurysm. No evidence of periaortic hemorrhage. LYMPH NODES: No evidence of diffuse lymphadenopathy. IMPRESSION: - No evidence of significant acute process on this unenhanced exam, allowing for motion artifact. There is no evidence of nephrolithiasis or obstructive uropathy. - See above for remaining findings.
[2018-02-23 01:49] VITALS: BP 135/79; PULSE 76
== END 2018-02-23 01:49 | disposition home or self-care (01) ==
LOC: ED 21:32
DX: N39.0 Urinary tract infection, site not specified (principal); R10.9 Unspecified abdominal pain
CPT/HCPCS: 74176; 80053; 81001; 83690; 83735; 85025; 85610; 85730; 96374; 96375; 99283; J1885; J2405; J7040

== ENCOUNTER 2018-10-09 07:39 | Emergency (ER) | payer OTHER ==
[2018-10-09 07:44] VITALS: BMI 39.6
[2018-10-09 07:54] VITALS: O2SAT 100
--- NOTE | 2018-10-09 08:36 | ED PDOC ---
Arrival/HPI - General Historian: Patient - History of Present Illness Narrative History of Present Illness (Text): 10/09/18 08:31 27 y/o F s/p recent elective (10/07/17) presents to ED with complaints of diffuse abdominal pain that has been ongoing since about 5 days. Pt reports she went to [facility] 5 days ago and signed out AMA. She had also recently went to an outpatient center in [place] on 10/07/17 for elective . Pt does not remember name of procedure, however reports she was placed under general anesthesia. She had been feeling nausea, brown vomiting, abdominal pain since the procedure. Shes been having light vaginal spotting since the procedure. She also reports that she hasn't been able to pass stool or gas for the past week. She denies fevers, chills, headache, dizziness, chest pain, palpitations, shortness of breath, diarrhea, dysuria. Time/Duration: Prior to Arrival Symptom Onset: Gradual Symptom Course: Unchanged Quality: Pressure Severity Level: Severe Activities at Onset: Rest <Hector Muniz - Last Filed: 10/09/18 12:52> <Jeremy Pearson DO - Last Filed: 10/09/18 17:22> - General Chief Complaint: GI Problem Time Seen by Provider: 10/09/18 07:41 Past Medical History - Provider Review Nursing Documentation Reviewed: Yes - Infectious Disease Hx of Infectious Diseases: None - Reproductive Menopause: No - Cardiac Hx Cardiac Disorders: No (denies) - Pulmonary Hx Respiratory Disorders: No (denies) - Neurological Hx Neurological Disorder: No (denies) - HEENT Hx HEENT Disorder: No (denies) - Renal Hx Renal Disorder: No (denies) - Endocrine/Metabolic Hx Endocrine Disorders: No (denies) - Hematological/Oncological Hx Blood Transfusions: No Hx Blood Transfusion Reaction: No - Integumentary Hx Dermatological Disorder: No (denies) - Musculoskeletal/Rheumatological Hx Falls: No - Gastrointestinal Hx Gastrointestinal Disorders: No (denies) - Genitourinary/Gynecological Hx Genitourinary Disorders: No ( x3) - Psychiatric Hx Psychophysiologic Disorder: Yes Hx Bipolar Disorder: Yes Hx Substance Use: No - Anesthesia Hx Anesthesia: Yes Hx Anesthesia Reactions: No Hx Malignant Hyperthermia: No <Hector Muniz - Last Filed: 10/09/18 12:52> Family/Social History - Physician Review Nursing Documentation Reviewed: Yes Family/Social History: Unknown Family HX Smoking Status: Current Some Days Smoker Hx Alcohol Use: No Hx Substance Use: No <Hector Muniz - Last Filed: 10/09/18 12:52> Allergies/Home Meds <Hector Muniz - Last Filed: 10/09/18 12:52> <Jeremy Pearson DO - Last Filed: 10/09/18 17:22> Allergies/Adverse Reactions: Allergies oxcarbazepine [From Trileptal] Allergy (Verified 09/17/18 11:32) RASH quetiapine [From Seroquel] Allergy (Verified 09/17/18 11:32) RASH tramadol Allergy (Verified 10/09/18 08:00) RASH Home Medications: Home Meds Medication Instructions Recorded Confirmed Amoxicillin [Amoxil 500 mg Cap] 500 mg PO 10/09/18 Review of Systems - Review of Systems Constitutional: Normal Eyes: Normal ENT: Normal Respiratory: Normal Cardiovascular: Normal Gastrointestinal: Abdominal Pain, Nausea, Vomiting. absent: Diarrhea Genitourinary Female: Other (vaginal spotting) Musculoskeletal: Normal Skin: Normal Neurological: Normal Endocrine: Normal Hemo/Lymphatic: Normal Psychiatric: Normal <Hector Muniz - Last Filed: 10/09/18 12:52> Physical Exam Vital Signs Reviewed: Yes Vital Signs Temp Pulse Resp BP Pulse Ox 10/09/18 07:52 98.6 F 83 18 135/55 L 100 Temperature: Afebrile Blood Pressure: Normal Pulse: Regular Respiratory Rate: Normal Appearance: Positive for: Well-Appearing, Non-Toxic, Comfortable Pain Distress: None Mental Status: Positive for: Alert and Oriented X 3 - Systems Exam Head: Present: Atraumatic, Normocephalic Pupils: Present: PERRL Extroacular Muscles: Present: EOMI Conjunctiva: Present: Normal Mouth: Present: Moist Mucous Membranes Neck: Present: Normal Range of Motion Respiratory/Chest: Present: Clear to Auscultation, Good Air Exchange. No: Respiratory Distress, Accessory Muscle Use Cardiovascular: Present: Regular Rate and Rhythm, Normal S1, S2. No: Murmurs Abdomen: Present: Tenderness (Diffuse), Normal Bowel Sounds, Other (Linea nigra present). No: Distention, Peritoneal Signs, Rebound Back: Present: Normal Inspection Upper Extremity: Present: Normal Inspection. No: Cyanosis, Edema Lower Extremity: Present: Normal Inspection. No: Edema Neurological: Present: GCS=15, CN II-XII Intact, Speech Normal Skin: Present: Warm, Dry, Normal Color. No: Rashes Psychiatric: Present: Alert, Oriented x 3, Normal Insight, Normal Concentration <Hector Muniz - Last Filed: 10/09/18 12:52> Vital Signs Temp Pulse Resp BP Pulse Ox 10/09/18 07:52 98.6 F 83 18 135/55 L 100 <Jeremy Pearson DO - Last Filed: 10/09/18 17:22> Medical Decision Making ED Course and Treatment: 10/09/18 08:41 Impression: 27 y/o F s/p elective presents to ED with complaints of diffuse severe pressure like abdominal pain and nausea/vomiting Differential diagnosis included but not limited to: Retained products of conception Plan: Labs EKG urinalysis POC test Transvaginal ultrasound Reassess & dispo Progress Notes: 10/09/18 12:52 Pt reevaluated. Her abdominal symptoms have resolved. Pt resting comfortably in bed. VSS. - RAD Interpretation Narrative RAD Interpretations (Text): 10/09/18 10:32 Transvaginal U/S: Impression: Heterogeneous appearance endometrium may be related to retained blood products and debris. Endometrial diameter measures approximately 1.3 cm. Correlate clinically. Radiology Orders: 10/09/18 08:30 TRANSVAGINAL [US] Stat <Hector Muniz - Last Filed: 10/09/18 12:52> ED Course and Treatment: 10/09/18 09:00 27 year old female presents to the ED for evaluation of generalized abdominal pain associated with nausea and vomiting s/p elective . In agreement with resident note which contains more details about the patient. Patient seen and evaluated with resident. Came up with plan and treatment together. - Lab Interpretations Lab Results: 10/09/18 08:40 Lab Results 10/09/18 08:45: Urine Color Yellow, Urine Appearance Cloudy, Urine pH 6.5, Ur Specific [place] >= 1.030, Urine Protein 100 H, Urine Glucose (UA) Negative, Urine Ketones 15 H, Urine Blood Large H, Urine Nitrate Positive H, Urine Bilirubin Moderate H, Urine Urobilinogen 2.0 H, Ur Leukocyte Esterase Trace H, Urine RBC 25 - 30 H, Urine WBC 5 - 10 H, Ur Epithelial Cells 6 - 8 H, Amorphous Sediment Few, Urine Bacteria Many, Coarse Granular Casts Trace, Urine Other [place]ast 10/09/18 08:40: WBC 7.4, RBC 4.59, Hgb 13.8, Hct 39.8, MCV 86.7, MCH 30.1, MCHC 34.7, RDW 12.5, Plt Count 256, MPV 9.3, Gran % 54.1, Lymph % (Auto) 32.7, [place] % (Auto) 11.4 H, Eos % (Auto) 1.5, Baso % (Auto) 0.3, Gran # 3.99, Lymph # (Auto) 2.4, [place] # (Auto) 0.8 H, Eos # (Auto) 0.1, Baso # (Auto) 0.02 - RAD Interpretation Radiology Orders: 10/09/18 08:30 TRANSVAGINAL [US] Stat - Medication Orders Current Medication Orders: Discontinued Medications Ondansetron HCl (Zofran Inj) 4 mg IVP STAT STA Stop: 10/09/18 08:45 <Jeremy Pearson DO - Last Filed: 10/09/18 17:22> - PA / FLIGHT CONTROL MANAGER / Resident Statement PRAVEEN has reviewed & agrees with the documentation as recorded. PRAVEEN has examined the patient and agrees with the treatment plan. <Hector Muniz - Last Filed: 10/09/18 12:52> - PA / FLIGHT CONTROL MANAGER / Resident Statement PRAVEEN has reviewed & agrees with the documentation as recorded. PRAVEEN has examined the patient and agrees with the treatment plan. - Scribe Statement The provider has reviewed the documentation as recorded by the Aniibe Erica Ackerman. All medical record entries made by the Aniibobed were at my direction and personally dictated by me. I have reviewed the chart and agree that the record accurately reflects my personal performance of the history, physical exam, medical decision making, and the department course for this patient. I have also personally directed, reviewed, and agree with the discharge instructions and disposition. <Jeremy Pearson DO - Last Filed: 10/09/18 17:22> Disposition/Present on Arrival - Present on Arrival Any Indicators Present on Arrival: No History of DVT/PE: No History of Uncontrolled Diabetes: No Urinary Catheter: No History of Decub. Ulcer: No History Surgical Site Infection Following: None - Disposition Have Diagnosis and Disposition been Completed?: Yes Disposition Time: 12:52 <Hector Muniz - Last Filed: 10/09/18 12:52> - Disposition Disposition Time: 09:50 <Jeremy Pearson DO - Last Filed: 10/09/18 17:22> - Disposition Diagnosis: Hypokalemia, UTI (urinary tract infection), Vaginal bleeding Disposition: HOME/ ROUTINE Condition: GOOD Discharge Instructions (ExitCare): Urinary Tract Infections in Adults, Hypokalemia (DC) Additional Instructions: SHYANNE GILES, thank you for letting us take care of you today. The emergency medical care you received today was directed at your acute symptoms. If you were prescribed any medication, please fill it and take as directed. It may take several days for your symptoms to resolve. Return to the Emergency Department if your symptoms worsen, do not improve, or if you have any other problems. Please contact your doctor or call one of the physicians/clinics you have been referred to that are listed on the Patient Visit Information form that is included in your discharge packet. Bring any paperwork you were given at discharge with you along with any medications you are taking to your follow up visit. Our treatment cannot replace ongoing medical care by a primary care provider outside of the emergency department. Thank you for allowing the [facility] team to be part of your care today. Follow up with your [facility] doctor in 2-3 days for re-evaluation and further manage ment. Prescriptions: Ibuprofen [Motrin] 600 mg PO Q6 PRN #20 tab PRN Reason: Pain, Moderate (4-7) Ondansetron ODT [Zofran ODT] 8 mg PO Q8 PRN #20 odt PRN Reason: Nausea/Vomiting Sulfamethoxazole/Trimethoprim [Bactrim DS 800 mg-160 mg] 1 tab PO BID #14 tab Referrals: Kasey Stanley DO [Family Provider] - Follow up with primary Forms: [employer] (Armenian)
[2018-10-09 08:53] LABS: BASO # 0.02 K/mm3 (0.0-2.0); BASO % 0.3 % (0.0-3.0); EOS # 0.1 (0.0-0.7); EOS % 1.5 % (1.5-5.0); GRAN # 3.99 (1.4-6.5); GRAN % 54.1 % (50.0-68.0); HEMOGLOBIN 13.8 g/dL (12.0-16.0); LYMPH # 2.4 (1.2-3.4); LYMPH % 32.7 % (22.0-35.0); MEAN CELL VOLUME 86.7 fl (80.0-105.0); MEAN CORPUSCULAR HEMOGLOBIN 30.1 pg (25.0-35.0); MEAN CORPUSCULAR HGB CONC 34.7 g/dl (31.0-37.0); MEAN PLATELET VOLUME 9.3 fl (7.0-11.0); MONO # 0.8 (0.1-0.6); MONO % 11.4 % (1.0-6.0); RBC 4.59 10^6/uL (3.5-6.1); RED CELL DISTRIBUTION WIDTH 12.5 % (11.5-14.5); WHITE BLOOD COUNT 7.4 10^3/uL (4.5-11.0)
[2018-10-09 09:03] LABS: PH,URINE 6.5 (4.7-8.0); URINE BILIRUBIN MODERATE (NEGATIVE); URINE BLOOD LARGE (NEGATIVE); URINE GLUCOSE (UA) NEGATIVE (NEGATIVE); URINE LEUKOCYTE ESTERASE TRACE Leu/uL (NEGATIVE); URINE PROTEIN 100 mg/dL (<30 mg/dL)
[2018-10-09 09:08] LABS: URINE COLOR YELLOW (YELLOW)
[2018-10-09 09:09] LABS: URINE APPEARANCE CLOUDY (CLEAR)
[2018-10-09 09:14] LABS: URINE AMORPHOUS SEDIMENT FEW /hpf; URINE BACTERIA MANY /hpf; URINE COARSE GRANULAR CAST TRACE /hpf; URINE RBC 25 - 30 /hpf (0-2)
[2018-10-09 09:24] LABS: ALB/GLOB RATIO 1.3 (1.1-1.8); ALBUMIN 4.3 g/dL (3.0-4.8); ALT/SGPT 35 U/L (7-56); AST/SGOT 36 U/L (14-36); BLOOD UREA NITROGEN 10 mg/dL (7-21); CALCIUM 9.4 mg/dL (8.4-10.5); GFR NON-AFRICAN AMERICAN > 60
[2018-10-09] MEDS ORDERED: Potassium Chloride 20 mEq ER Tab PO STA (09:26)
--- NOTE | 2018-10-09 09:42 | US ---
Date of service: 10/09/2018 Indication: s/p elective . ?RPOC Comparison: Pelvic ultrasound performed 12/01/17 Technique: Transvaginal pelvic ultrasound. Findings: Uterus measures approximately 11.0 x 6.5 x 7.9 cm. Anteverted. Heterogeneous appearance of the endometrium measures approximately 1.3 cm in diameter. Cervix length measures approximately 3.4 cm. The right ovary measures 3.7 x 2.3 x 3.2 cm. The left ovary measures 4.1 x 2.2 x 3.2 cm. Blood flow was demonstrated to both ovaries. Impression: Heterogeneous appearance endometrium may be related to retained blood products and debris. Endometrial diameter measures approximately 1.3 cm. Correlate clinically.
[2018-10-09 14:35] VITALS: BP 135/86; PULSE 65; RESP 18; TEMP 98.1
--- NOTE | 2018-10-10 10:09 | CARD ---
APPROVED REPORT Date of service: 10/09/2018 EKG Measurement Heart [id number] 124P [id number] <Conclusion> Normal sinus rhythm Normal ECG
== END 2018-10-09 14:23 | disposition home or self-care (01) ==
LOC: ED 07:39
DX: E87.6 Hypokalemia (principal); N39.0 Urinary tract infection, site not specified; N93.9 Abnormal uterine and vaginal bleeding, unspecified; Z98.890 Other specified postprocedural states
CPT/HCPCS: 76830; 80053; 81001; 84702; 85025; 87086; 93005; 96361; 96374; 96375; 99284; J1885; J2405; J3480

== ENCOUNTER 2018-10-10 07:02 | Observation (INO) | payer OTHER ==
--- NOTE | 2018-10-10 07:42 | ED PDOC ---
Arrival/HPI - General Historian: Patient - History of Present Illness Narrative History of Present Illness (Text): 10/10/18 07:34 27 y/o [id number] F with PMHx of recent elective POD3 s/p D&C (per pt at [facility]) presents to ED with complaints of persistent b/l lower abdominal pain, nausea and intractable brown/watery non-bilious vomiting that's been ongoing for about a week. She has been unable to keep down fluids/food. Shes been having vaginal spotting since the procedure. She also reports that she hasn't been able to pass stool or gas for the past week. She also reports she has some burning with urination since several days without hematuria. She had presented to ED yesterday with similar symptoms, and reports intractable vomiting despite antiemetic treatment. She denies fevers, chills, headache, dizziness, chest pain, palpitations, shortness of breath, diarrhea PMH: Denies PSH: [id number], most recent 10/08/17 (D&C @[facility] outpatient). Appendectomy 11/2017 SocHx: Denies tobacco/ETOH, occasional marijuana ALL: Seroquel, Trilleptal (swelling) Meds: TMP-SMX, zofran (recent ED visit) PMD: None OBGYN: Dr. Kaiden Dominguez Pharmacy: [facility] Time/Duration: Prior to Arrival Symptom Onset: Gradual Symptom Course: Unchanged Quality: Cramping Severity Level: Moderate Context: Sitting <Hector Muniz - Last Filed: 10/10/18 12:18> <Gato Mcmanus - Last Filed: 10/10/18 12:20> - General Time Seen by Provider: 10/10/18 07:09 Past Medical History - Provider Review Nursing Documentation Reviewed: Yes - Infectious Disease Hx of Infectious Diseases: None - Cardiac Hx Cardiac Disorders: No (denies) - Pulmonary Hx Respiratory Disorders: No (denies) - Neurological Hx Neurological Disorder: No (denies) - HEENT Hx HEENT Disorder: No (denies) - Renal Hx Renal Disorder: No (denies) - Endocrine/Metabolic Hx Endocrine Disorders: No (denies) - Hematological/Oncological Hx Blood Transfusions: No Hx Blood Transfusion Reaction: No - Integumentary Hx Dermatological Disorder: No (denies) - Musculoskeletal/Rheumatological Hx Falls: No - Gastrointestinal Hx Gastrointestinal Disorders: No (denies) - Genitourinary/Gynecological Hx Genitourinary Disorders: No ( x3) - Psychiatric Hx Psychophysiologic Disorder: Yes Hx Bipolar Disorder: Yes Hx Substance Use: No - Anesthesia Hx Anesthesia: Yes Hx Anesthesia Reactions: No Hx Malignant Hyperthermia: No <Hector Muniz - Last Filed: 10/10/18 12:18> Family/Social History - Physician Review Nursing Documentation Reviewed: Yes Family/Social History: Unknown Family HX Smoking Status: Current Some Days Smoker Hx Alcohol Use: No Hx Substance Use: No <Hector Muniz - Last Filed: 10/10/18 12:18> Allergies/Home Meds <Hector Muniz - Last Filed: 10/10/18 12:18> <Gato Mcmanus - Last Filed: 10/10/18 12:20> Allergies/Adverse Reactions: Allergies oxcarbazepine [From Trileptal] Allergy (Verified 10/10/18 12:04) RASH quetiapine [From Seroquel] Allergy (Verified 10/10/18 12:04) RASH tramadol Allergy (Verified 10/10/18 12:04) RASH Home Medications: Home Meds Medication Instructions Recorded Confirmed RX: Amoxicillin [Amoxil 500 mg Cap] 500 mg PO 10/09/18 Review of Systems - Review of Systems Constitutional: Normal Eyes: Normal ENT: Normal Respiratory: Normal Cardiovascular: Normal Gastrointestinal: Abdominal Pain, Nausea, Vomiting Genitourinary Female: Dysuria Musculoskeletal: Back Pain Skin: Normal Neurological: Normal Endocrine: Normal Hemo/Lymphatic: Normal Psychiatric: Normal <Hector Muniz - Last Filed: 10/10/18 12:18> Physical Exam Vital Signs Reviewed: Yes Temperature: Afebrile Blood Pressure: Normal Pulse: Regular Respiratory Rate: Normal Appearance: Positive for: Well-Appearing, Non-Toxic, Comfortable Pain Distress: None Mental Status: Positive for: Alert and Oriented X 3 - Systems Exam Head: Present: Atraumatic, Normocephalic Pupils: Present: PERRL Extroacular Muscles: Present: EOMI Conjunctiva: Present: Normal Mouth: Present: Moist Mucous Membranes Neck: Present: Normal Range of Motion Respiratory/Chest: Present: Clear to Auscultation, Good Air Exchange. No: Respiratory Distress, Accessory Muscle Use Cardiovascular: Present: Regular Rate and Rhythm, Normal S1, S2. No: Murmurs Abdomen: Present: Tenderness. No: Distention, Normal Bowel Sounds (hypoactive), Peritoneal Signs, Rebound, Guarding Back: Present: Normal Inspection Upper Extremity: Present: Normal Inspection. No: Cyanosis, Edema Lower Extremity: Present: Normal Inspection. No: Edema Neurological: Present: GCS=15, CN II-XII Intact, Speech Normal Skin: Present: Warm, Dry, Normal Color. No: Rashes Psychiatric: Present: Alert, Oriented x 3, Anxious <Hector Muniz - Last Filed: 10/10/18 12:18> Vital Signs Temp Pulse Resp BP Pulse Ox 10/10/18 07:41 98.3 F 67 18 111/75 98 <Gato Mcmanus - Last Filed: 10/10/18 12:20> Medical Decision Making ED Course and Treatment: 10/10/18 07:51 Impression: 27 y/o F with PMHx elective POD3 s/p elective (D&C) presents to ED with complaints of intractable b/l abdominal pain. Differential diagnosis includes but is not limited to: Acute abdomen post-op changes Plan: rocephin IVPB morphine zofran Labs b-hcg quant u/a CT abdomen w/IV contrast Reassess & dispo Progress notes: 10/10/18 11:31 Case discussed with hospitalist, Dr. Kandice Kebede. Will evaluate patient. - RAD Interpretation Narrative RAD Interpretations (Text): 10/10/18 11:07 CT Abdomen: No acute intra-abdominal findings <Hector Muniz - Last Filed: 10/10/18 12:18> ED Course and Treatment: 10/10/18 08:46 Patient is a 27 year old female presenting to the emergency department complaini ng of lower abdominal pain. In agreement with resident note, which includes further HPI details. Patient was seen and evaluated with resident, came up with plan and treatment together. - Lab Interpretations Lab Results: 10/10/18 08:17 Lab Results 10/10/18 08:17: WBC 7.9, RBC 5.20, Hgb 15.6, Hct 44.7, MCV 86.0, MCH 30.0, MCHC 34.9, RDW 12.5, Plt Count 290, MPV 9.5, Gran % 49.6 L, Lymph % (Auto) 35.9 H, Calvert % (Auto) 11.4 H, Eos % (Auto) 2.8, Baso % (Auto) 0.3, Gran # 3.92, Lymph # (Auto) 2.8, Calvert # (Auto) 0.9 H, Eos # (Auto) 0.2, Baso # (Auto) 0.02 - RAD Interpretation Radiology Orders: 10/10/18 08:00 ABD & PELVIS IV CONTRAST ONLY [CT] Stat - Medication Orders Current Medication Orders: Ceftriaxone Sodium (Rocephin 1 Gram Ivpb) 1 gm in 100 mls @ 100 mls/hr IVPB STAT STA; Protocol Stop: 10/10/18 09:03 Last Admin: 10/10/18 08:19 Dose: 100 mls/hr eMAR Start Stop Document 10/10/18 08:19 [facility] (Rec: 10/10/18 08:20 [id number] Intravenous Solution Start Date 10/10/18 Start Time 08:20 End Date 10/10/18 End time 09:00 Total Infusion Time 40 Discontinued Medications Morphine Sulfate (Morphine) 2 mg IVP STAT STA Stop: 10/10/18 08:00 Last Admin: 10/10/18 08:20 Dose: 2 mg MAR Pain Assessment Document 10/10/18 08:20 [facility] (Rec: 10/10/18 08:20 [id number] Pain Reassessment Is this a pain reassessment? No Sleep Is patient sleeping during reassessment? No Presence of Pain Presence of Pain Yes IVP Administration Document 10/10/18 08:20 [facility] (Rec: 10/10/18 08:20 [id number] Charges for Administration # of IVP Administrations 1 Ondansetron HCl (Zofran Inj) 4 mg IVP STAT STA Stop: 10/10/18 08:00 Last Admin: 10/10/18 08:20 Dose: 4 mg IVP Administration Document 10/10/18 08:20 [facility] (Rec: 10/10/18 08:20 [id number]) Charges for Administration # of IVP Administrations 1 <Gato Mcmanus T - Last Filed: 10/10/18 12:20> - PA / SOAPSTONER / Resident Statement PRAVEEN has reviewed & agrees with the documentation as recorded. PRAVEEN has examined the patient and agrees with the treatment plan. <Hector Muniz - Last Filed: 10/10/18 12:18> - PA / SOAPSTONER / Resident Statement PRAVEEN has reviewed & agrees with the documentation as recorded. PRAVEEN has examined the patient and agrees with the treatment plan. - Scribe Statement The provider has reviewed the documentation as recorded by the Scribobed Florentino All medical record entries made by the Aniibobed were at my direction and personally dictated by me. I have reviewed the chart and agree that the record accurately reflects my personal performance of the history, physical exam, medical decision making, and the department course for this patient. I have also personally directed, reviewed, and agree with the discharge instructions and disposition. <Gato Mcmanus - Last Filed: 10/10/18 12:20> Disposition/Present on Arrival - Present on Arrival Any Indicators Present on Arrival: No History of DVT/PE: No History of Uncontrolled Diabetes: No Urinary Catheter: No History Surgical Site Infection Following: None - Disposition Have Diagnosis and Disposition been Completed?: Yes Disposition Time: 11:36 Patient Plan: Observation <Hector Muniz - Last Filed: 10/10/18 12:18> <Gato Mcmanus - Last Filed: 10/10/18 12:20> - Disposition Diagnosis: Intractable vomiting, Hypokalemia Disposition: HOSPITALIZED Patient Problems: Current Active Problems Problem Status Onset Intractable vomiting Acute Condition: FAIR
[2018-10-10] MEDS ORDERED: Morphine 2 mg/ml ISec IVP STA (07:59)
[2018-10-10] MEDS ORDERED: cefTRIAXone 1 gm 1 GM/100 ML BAG IVPB STA (08:04)
[2018-10-10 08:39] LABS: BASO # 0.02 K/mm3 (0.0-2.0); BASO % 0.3 % (0.0-3.0); EOS # 0.2 (0.0-0.7); EOS % 2.8 % (1.5-5.0); GRAN # 3.92 (1.4-6.5); GRAN % 49.6 % (50.0-68.0); HEMOGLOBIN 15.6 g/dL (12.0-16.0); LYMPH # 2.8 (1.2-3.4); LYMPH % 35.9 % (22.0-35.0); MEAN CORPUSCULAR HGB CONC 34.9 g/dl (31.0-37.0); MEAN PLATELET VOLUME 9.5 fl (7.0-11.0); MONO # 0.9 (0.1-0.6); MONO % 11.4 % (1.0-6.0); RBC 5.2 10^6/uL (3.5-6.1); RED CELL DISTRIBUTION WIDTH 12.5 % (11.5-14.5); WHITE BLOOD COUNT 7.9 10^3/uL (4.5-11.0)
[2018-10-10 09:21] LABS: ALB/GLOB RATIO 1.2 (1.1-1.8); ALBUMIN 4.4 g/dL (3.0-4.8); ALT/SGPT 34 U/L (7-56); AST/SGOT 31 U/L (14-36); BLOOD UREA NITROGEN 9 mg/dL (7-21); CALCIUM 9.5 mg/dL (8.4-10.5); GFR NON-AFRICAN AMERICAN > 60; LIPASE 69 U/L (23-300)
[2018-10-10] MEDS ORDERED: Potassium Chloride 20 mEq ER Tab PO STA (09:26)
[2018-10-10] MEDS ORDERED: Iohexol 350 MG/100 ML VIAL ONE (10:36)
[2018-10-10 11:01] LABS: URINE BILIRUBIN NEGATIVE (NEGATIVE); URINE BLOOD LARGE (NEGATIVE); URINE GLUCOSE (UA) NEGATIVE (NEGATIVE); URINE LEUKOCYTE ESTERASE NEGATIVE Leu/uL (NEGATIVE); URINE PROTEIN NEGATIVE mg/dL (<30 mg/dL)
[2018-10-10 11:03] LABS: URINE APPEARANCE CLEAR (CLEAR); URINE COLOR LIGHT YELLOW (YELLOW)
--- NOTE | 2018-10-10 11:05 | CT ---
Date of service: 10/10/2018 PROCEDURE: CT Abdomen and Pelvis with contrast HISTORY: abdominal pain COMPARISON: 02/22/2018 TECHNIQUE: Contrast dose: 100 cc of Omni 350 Radiation dose: Total exam DLP = 1043.69 mGy-cm. This CT exam was performed using one or more of the following dose reduction techniques: Automated exposure control, adjustment of the mA and/or kV according to patient size, and/or use of iterative reconstruction technique. FINDINGS: LOWER THORAX: Unremarkable. LIVER: Unremarkable. No gross lesion or ductal dilatation. GALLBLADDER AND BILE DUCTS: Unremarkable. PANCREAS: Unremarkable. No gross lesion or ductal dilatation. SPLEEN: Unremarkable. ADRENALS: Unremarkable. No mass. KIDNEYS AND URETERS: Unremarkable. No hydronephrosis. No solid mass. VASCULATURE: Unremarkable. No aortic aneurysm. No aortic atherosclerotic calcification or mural plaque present. BOWEL: Unremarkable. No obstruction. No gross mural thickening. APPENDIX: The appendix has been removed PERITONEUM: Unremarkable. No free fluid. No free air. LYMPH NODES: Unremarkable. No enlarged lymph nodes. BLADDER: Unremarkable. REPRODUCTIVE: Unremarkable. BONES: No acute fracture. OTHER FINDINGS: None. IMPRESSION: No acute intra-abdominal findings
[2018-10-10 11:15] LABS: URINE WBC 0 - 2 /hpf (0-6)
[2018-10-10] MEDS: Sodium Chloride 0.9% 1,000 ML IV SCH (12:32)
--- NOTE | 2018-10-10 12:41 | CP.PCM.HP ---
<Rajesh Hsieh - Last Filed: 10/10/18 12:17> History of Present Illness - History of Present Illness History of Present Illness: CC: Intractable N/V HPI: Patient is a 27 yo F -0-10-3 [place] [facility] [place] to intractable nausea, vomiting, and abdominal pain. Patient states that she went to [facility] on Friday complaining of abdominal pain and found out she was 11.5 weeks and discharged on Zofran. Patient returned the next day for bilious vomiting, she was found to be hypokalemic and have a UTI. She was discharged after potassium was repleted and sent on oral antibiotics. Patient went to [facility] for d&c on Friday. She subsequently had ED visits at [facility] and [facility] for vomiting and hypokalemia. Today, patient comes to ED after having 4 episodes of bilious vomiting despite zofran use. Patient states that she has dull mid-abdominal pain that radiates to back. Patient also complains of dysuria and minor vaginal bleeding. Patient denies CP, SOB, diarrhea, fever, chills, GARCIA, and dizziness. PMH: Denied Surg: Appendectomy, d&c x10 All: Oxcarbazepine, quetiapine, tramadol SH: Social tobacco, EtOH, and marijuana use FHx: Father-denied, Mother-denied Medications none Present on Admission - Present on Admission Any Indicators Present on Admission: No Review of Systems - Review of Systems All systems: reviewed and no additional remarkable complaints except (12 point ROS reviewed and is negative other than what is stated in HPI.) Past Patient History - Infectious Disease Hx of Infectious Diseases: None - Past Social History Smoking Status: Current Some Days Smoker - CARDIAC Hx Cardiac Disorders: No (denies) - PULMONARY Hx Respiratory Disorders: No (denies) - NEUROLOGICAL Hx Neurological Disorder: No (denies) - HEENT Hx HEENT Problems: No (denies) - RENAL Hx Chronic Kidney Disease: No (denies) - ENDOCRINE/METABOLIC Hx Endocrine Disorders: No (denies) - HEMATOLOGICAL/ONCOLOGICAL Hx Blood Transfusions: No Hx Blood Transfusion Reaction: No - INTEGUMENTARY Hx Dermatological Problems: No (denies) - MUSCULOSKELETAL/RHEUMATOLOGICAL Hx Falls: No - GASTROINTESTINAL Hx Gastrointestinal Disorders: No (denies) - GENITOURINARY/GYNECOLOGICAL Hx Genitourinary Disorders: No ( x3) - PSYCHIATRIC Hx Psychophysiologic Disorder: Yes Hx Bipolar Disorder: Yes Hx Substance Use: No - SURGICAL HISTORY Hx Surgeries: Yes () - ANESTHESIA Hx Anesthesia: Yes Hx Anesthesia Reactions: No Hx Malignant Hyperthermia: No Meds Allergies/Adverse Reactions: Allergies Allergy/AdvReac Type Severity Reaction Status Date / Time oxcarbazepine Allergy RASH Verified 10/10/18 12:04 [From Trileptal] quetiapine [From Seroquel] Allergy RASH Verified 10/10/18 12:04 tramadol Allergy RASH Verified 10/10/18 12:04 Physical Exam - Constitutional Appears: No Acute Distress - Head Exam Head Exam: NORMAL INSPECTION - Eye Exam Eye Exam: EOMI, Normal appearance, PERRL - ENT Exam ENT Exam: Mucous Membranes Moist, Normal Exam - Neck Exam Neck exam: Positive for: Normal Inspection - Respiratory Exam Respiratory Exam: Clear to Auscultation Bilateral. absent: Rales, Rhonchi, Wheezes - Cardiovascular Exam Cardiovascular Exam: RRR, +S1, +S2. absent: Diastolic murmur, Gallop, Rubs, Systolic Murmur - GI/Abdominal Exam GI & Abdominal Exam: Normal Bowel Sounds, Soft. absent: Distended, Guarding, Rebound, Tenderness - Extremities Exam Extremities exam: Positive for: normal inspection - Back Exam Back exam: NORMAL INSPECTION - Neurological Exam Neurological exam: Alert, CN II-XII Intact, Oriented x3 - Psychiatric Exam Psychiatric exam: Normal Affect, Normal Mood - Skin Skin Exam: Dry, Intact, Normal Color, Warm Results - Vital Signs Recent Vital Signs: Last Vital Signs Temp 98.0 F 10/10/18 11:44 Pulse 73 10/10/18 11:44 Resp 18 10/10/18 11:44 BP 155/93 H 10/10/18 11:44 Pulse Ox 98 10/10/18 11:44 - Labs Result Diagrams: 10/10/18 08:17 10/10/18 08:17 Labs: Laboratory Results - last 24 hr 10/10/18 10/10/18 10/10/18 08:17 08:17 08:17 WBC 7.9 RBC 5.20 Hgb 15.6 Hct 44.7 MCV 86.0 MCH 30.0 MCHC 34.9 RDW 12.5 Plt Count 290 MPV 9.5 Gran % 49.6 L Lymph % (Auto) 35.9 H Calhoun % (Auto) 11.4 H Eos % (Auto) 2.8 Baso % (Auto) 0.3 Gran # 3.92 Lymph # (Auto) 2.8 Calhoun # (Auto) 0.9 H Eos # (Auto) 0.2 Baso # (Auto) 0.02 Sodium 138 Potassium 2.9 L* Chloride 99 Carbon Dioxide 29 Anion Gap 13 BUN 9 Creatinine 0.9 Est GFR ( Amer) > 60 Est GFR (Non-Af Amer) > 60 Random Glucose 90 Calcium 9.5 Total Bilirubin 2.1 H AST 31 ALT 34 Alkaline Phosphatase 63 Total Protein 7.9 Albumin 4.4 Globulin 3.5 Albumin/Globulin Ratio 1.2 Lipase 69 Beta HCG, Quant 4953.60 H Urine Color Urine Appearance Urine pH Ur Specific Burd[place] Urine Protein Urine Glucose (UA) Urine Ketones Urine Blood Urine Nitrate Urine Bilirubin Urine Urobilinogen Ur Leukocyte Esterase Urine RBC Urine WBC Ur Epithelial Cells 10/10/18 09:50 WBC RBC Hgb Hct MCV MCH MCHC RDW Plt Count MPV Gran % Lymph % (Auto) Calhoun % (Auto) Eos % (Auto) Baso % (Auto) Gran # Lymph # (Auto) Calhoun # (Auto) Eos # (Auto) Baso # (Auto) Sodium Potassium Chloride Carbon Dioxide Anion Gap BUN Creatinine Est GFR ( Amer) Est GFR (Non-Af Amer) Random Glucose Calcium Total Bilirubin AST ALT Alkaline Phosphatase Total Protein Albumin Globulin Albumin/Globulin Ratio Lipase Beta HCG, Quant Urine Color Light yellow Urine Appearance Clear Urine pH 7.0 Ur Specific Burd[place] 1.015 Urine Protein Negative Urine Glucose (UA) Negative Urine Ketones 40 H Urine Blood Large H Urine Nitrate Negative Urine Bilirubin Negative Urine Urobilinogen 1.0 H Ur Leukocyte Esterase Negative Urine RBC 2 - 5 H Urine WBC 0 - 2 Ur Epithelial Cells 1 - 3 Assessment & Plan - Assessment and Plan (Free Text) Assessment: 27 yo F -0-10-3 presents to [facility] [place] recent . Patient will placed on observation for intractable nausea, vomiting, and abdominal pain. Plan: 1. Abdominal Pain 2. Intractable Nausea/Vomiting - Likely 2/2 aborted - CT abd/pelvis negative - Transvaginal US on 10/09/18 showed heterogeneous appearance endometrium may be related to retained blood products and debris - Beta-HCG downtrending appropriately - NPO - NS at 100cc/hr - Zofran prn for nausea - Tylenol/Toradol prn for pain 3. Hypokalemia - Repleted with PO and IV KCl in ED - Will give another dose of IV KCl - Will Check Mag level - Cont to monitor and replete as needed 4. UTI - UA positive on 10/09/18 - Urine culture positive for gram + cocci - Cont Rocephin GI/DVT PPx - Protonix - SCDs Patient seen and discussed in detail with Dr. Kebede. Hieu Hsieh, DO PGY2 <Kandice Kebede R - Last Filed: 10/12/18 18:00> Results - Vital Signs Recent Vital Signs: Last Vital Signs Temp 98.2 F 10/11/18 06:00 Pulse 65 10/11/18 06:00 Resp 20 10/11/18 06:00 BP 132/81 10/11/18 06:00 Pulse Ox 96 10/11/18 06:00 - Labs Result Diagrams: 10/11/18 05:30 10/11/18 12:45 Attending/Attestation - Attestation I have personally seen and examined this patient.: Yes I have fully participated in the care of the patient.: Yes I have reviewed all pertinent clinical information: Yes Notes (Text): Patient seen and examined by me with resident at 11:30 AM on 10/10/18. Case including HPI, physical exam, and assessment and plan discussed with resident. Agree with above with following additions/corrections. Patient is a 27 year old female G13, P3-0-10-3 that presents to the emergency room with intractable nausea, vomiting, and abdominal pain. Patient states she went the [facility] on 10/04/18 with similar symptoms at which time she was found to be . Patient was discharged with Zofran. She returned the following day to [facility] and was given potassium for low potassium and was sent home. She states she then went to [facility] 10/07/18 and had an and D&C. She then returned again to [facility] with same symptoms. Patient also presented to [facility] with same symptoms yesterday 10/09/17 and patient was treated for UTI. Patient returns today with nausea, vomiting, abdominal pain, and dysuria. Patient states that abdominal pain is generalized and constant. Patient is crampy with intermittent sharp pain. Patient had 4 episodes of nonbilious, nonbloody vomiting today. Patient states she is still feeling nauseous. Pain radiates to right side of back. Patient states she is also having burning and pain with urination and blood in her urine since her . Patient states this is her 10th . Patient denies any headaches or dizziness. No fevers or chills. No chest pain or shortness of breath. No diarrhea or constipation. 12 point review of systems reviewed by me. Please see above HPI, all other systems negative Family history. Mother is alive and healthy. Father is alive and healthy. Social history. Patient states she smokes socially but is unable to quantify how much. Patient states she also drinks socially but unable to quantify amount or how often. Patient states she uses marijuana occasionally. Physical exam: General: Awake and alert sitting up in bed in no acute distress HEENT: Normocephalic, atraumatic. Extraocular muscles intact, pupils equal and reactive, no scleral icterus. Oropharynx is pink and moist. Neck is supple. Cardiovascular: Regular rhythm. Normal S1 and S2. No murmurs, rubs, or gallops appreciated Pulmonary: Normal respiratory effort. No rhonchi, rales, or wheezing appreciated. Gastrointestinal: Soft, nondistended. Nontender(when patient is distracted). Positive bowel sounds all 4 quadrants. No guarding. Musculoskeletal: Moves all extremities. No calf tenderness. No edema appreciated. No CVA tenderness Central nervous system: AAOx 3.CN 2-12 grossly intact. Dermatologic: Skin warm and dry. Assessment and Plan: Patient is a 27 year old female G13, P3-0-10-3 that presents to the emergency room with intractable nausea, vomiting, and abdominal pain. 1. Nausea, vomiting, abdominal pain. Likely secondary to recent and . HCG downtrending. Will make NPO. Place on IV fluidz. Zofran as needed. CT abd/pelvis per radiologist showed no acute intra-abdominal findings. 2. Hypokalemia. Replace with IV potassium. Follow up repeat labs in AM 3. UTI. Placed on Rocephin. Urine culture positive for gram positive cocci. 4. Multiple abortions. Patient counseled at length on protection and safe sexual practices. Case discussed in detail with patient regarding current diagnosis and treatment plan. All questions answered.
[2018-10-10 14:20] VITALS: BMI 38.4
[2018-10-10] MEDS ORDERED: Pneumococcal 23-Valent Vaccine IM ONE (14:20)
[2018-10-10] MEDS ORDERED: Influenza Vaccine 60 mcg/0.5 mL SYR (4YR UP) IM ONE (14:20)
--- NOTE | 2018-10-10 16:04 | CARD ---
APPROVED REPORT Date of service: 10/10/2018 EKG Measurement Heart [id number] IL 150P [id number] <Conclusion> Normal sinus rhythm Normal ECG
[2018-10-10 17:51] VITALS: PULSE 65; RESP 20
[2018-10-11] MEDS: Sodium Chloride 0.9% 1,000 ML IV SCH (02:42)
[2018-10-11 06:59] LABS: HEMOGLOBIN 13.4 g/dL (12.0-16.0); MEAN CELL VOLUME 86.9 fl (80.0-105.0); MEAN CORPUSCULAR HEMOGLOBIN 29.3 pg (25.0-35.0); MEAN CORPUSCULAR HGB CONC 33.8 g/dl (31.0-37.0); MEAN PLATELET VOLUME 9.5 fl (7.0-11.0); RBC 4.57 10^6/uL (3.5-6.1); RED CELL DISTRIBUTION WIDTH 12.6 % (11.5-14.5); WHITE BLOOD COUNT 6.4 10^3/uL (4.5-11.0)
[2018-10-11 07:01] LABS: BLOOD UREA NITROGEN 8 mg/dL (7-21); CALCIUM 8.9 mg/dL (8.4-10.5); GFR NON-AFRICAN AMERICAN > 60
[2018-10-11 07:35] VITALS: BP 132/81; TEMP 98.2; O2SAT 96
[2018-10-11] MEDS ORDERED: Potassium Chloride 20 mEq ER Tab PO ONE (09:50)
[2018-10-11] MEDS ORDERED: cefTRIAXone 1 gm 1 GM/100 ML BAG IVPB SCH (10:00)
[2018-10-11 12:59] LABS: BLOOD UREA NITROGEN 9 mg/dL (7-21); GFR NON-AFRICAN AMERICAN > 60
--- NOTE | 2018-10-11 14:19 | CP.PCM.DIS ---
<Galen Bennettron - Last Filed: 10/11/18 14:41> Provider - Provider Date of Admission: 10/10/18 11:19 Attending physician: Kandice Kebede DO Time Spent in preparation of Discharge (in minutes): 45 Diagnosis - Discharge Diagnosis (1) Intractable vomiting Status: Acute Priority: High (2) Hypokalemia Status: Acute Priority: High (3) UTI (urinary tract infection) Status: Acute Priority: High Hospital Course - Lab Results Lab Results: Most Recent Lab Values WBC 6.4 10^3/uL (4.5-11.0) 10/11/18 05:30 RBC 4.57 10^6/uL (3.5-6.1) 10/11/18 05:30 Hgb 13.4 g/dL (12.0-16.0) D 10/11/18 05:30 Hct 39.7 % (36.0-48.0) 10/11/18 05:30 MCV 86.9 fl (80.0-105.0) 10/11/18 05:30 MCH 29.3 pg (25.0-35.0) 10/11/18 05:30 MCHC 33.8 g/dl (31.0-37.0) 10/11/18 05:30 RDW 12.6 % (11.5-14.5) 10/11/18 05:30 Plt Count 240 10^3/uL (120.0-450.0) 10/11/18 05:30 MPV 9.5 fl (7.0-11.0) 10/11/18 05:30 Gran % 49.6 % (50.0-68.0) L 10/10/18 08:17 Lymph % (Auto) 35.9 % (22.0-35.0) H 10/10/18 08:17 [place] % (Auto) 11.4 % (1.0-6.0) H 10/10/18 08:17 Eos % (Auto) 2.8 % (1.5-5.0) 10/10/18 08:17 Baso % (Auto) 0.3 % (0.0-3.0) 10/10/18 08:17 Gran # 3.92 (1.4-6.5) 10/10/18 08:17 Lymph # (Auto) 2.8 (1.2-3.4) 10/10/18 08:17 [place] # (Auto) 0.9 (0.1-0.6) H 10/10/18 08:17 Eos # (Auto) 0.2 (0.0-0.7) 10/10/18 08:17 Baso # (Auto) 0.02 K/mm3 (0.0-2.0) 10/10/18 08:17 Sodium 135 mmol/L (132-148) 10/11/18 12:45 Potassium 3.4 mmol/L (3.6-5.0) L 10/11/18 12:45 Chloride 102 mmol/L (98-107) 10/11/18 12:45 Carbon Dioxide 26 mmol/L (21-33) 10/11/18 12:45 Anion Gap 11 (10-20) 10/11/18 12:45 BUN 9 mg/dL (7-21) 10/11/18 12:45 Creatinine 0.7 mg/dl (0.7-1.2) 10/11/18 12:45 Est GFR ( Amer) > 60 10/11/18 12:45 Est GFR (Non-Af Amer) > 60 10/11/18 12:45 Random Glucose 83 mg/dL (70-110) 10/11/18 12:45 Calcium 9.0 mg/dL (8.4-10.5) 10/11/18 12:45 Phosphorus 3.4 mg/dL (2.5-4.5) 10/11/18 05:30 Magnesium 2.0 mg/dL (1.7-2.2) 10/11/18 05:30 Total Bilirubin 2.1 mg/dL (0.2-1.3) H 10/10/18 08:17 AST 31 U/L (14-36) 10/10/18 08:17 ALT 34 U/L (7-56) 10/10/18 08:17 Alkaline Phosphatase 63 U/L (38-126) 10/10/18 08:17 Total Protein 7.9 g/dL (5.8-8.3) 10/10/18 08:17 Albumin 4.4 g/dL (3.0-4.8) 10/10/18 08:17 Globulin 3.5 gm/dL 10/10/18 08:17 Albumin/Globulin Ratio 1.2 (1.1-1.8) 10/10/18 08:17 Lipase 69 U/L (23-300) 10/10/18 08:17 Beta HCG, Quant 2438.50 mIU/mL (0-6.15) H 10/11/18 08:00 Urine Color Light yellow (YELLOW) 10/10/18 09:50 Urine Appearance Clear (CLEAR) 10/10/18 09:50 Urine pH 7.0 (4.7-8.0) 10/10/18 09:50 Ur Specific [place] 1.015 (1.005-1.035) 10/10/18 09:50 Urine Protein Negative mg/dL (<30 mg/dL) 10/10/18 09:50 Urine Glucose (UA) Negative mg/dL (NEGATIVE) 10/10/18 09:50 Urine Ketones 40 mg/dL (NEGATIVE) H 10/10/18 09:50 Urine Blood Large (NEGATIVE) H 10/10/18 09:50 Urine Nitrate Negative (NEGATIVE) 10/10/18 09:50 Urine Bilirubin Negative (NEGATIVE) 10/10/18 09:50 Urine Urobilinogen 1.0 E.U./dL (<1 E.U./dL) H 10/10/18 09:50 Ur Leukocyte Esterase Negative Luis Antonio/uL (NEGATIVE) 10/10/18 09:50 Urine RBC 2 - 5 /hpf (0-2) H 10/10/18 09:50 Urine WBC 0 - 2 /hpf (0-6) 10/10/18 09:50 Ur Epithelial Cells 1 - 3 /hpf (0-5) 10/10/18 09:50 - Hospital Course Hospital Course: Upon Admission Patient is a 27 yo F -0-10-3 presents to [facility] due to intractable nausea, vomiting, and abdominal pain. Pt states that she went to [facility] on Friday complaining of abdominal pain and found out she was 11.5 weeks and discharged on Zofran. Patient went to [facility] for d&c on Friday. She subsequently had ED visits at [facility] and [facility] for vomiting and hypokalemia. Upon admission, patient comes to ED after having 4 episodes of bilious vomiting despite zofran use. Pt stated that she had dull mid-abdominal pain that radiates to back. Patient also complains of dysuria and minor vaginal bleeding. Patient denies CP, SOB, diarrhea, fever, chills, GARCIA, and dizziness. During Hospital Stay While pt was admitted but CTAP was negative for acute intra abdominal pathological process. Transvaginal US showed heterogeneous appearance of endometrium which may be related to retained products. Beta HCG was downtrending. Pt was found to have hypokalemia which was treated. She also was found to have a UTI which was treated with rocephin. Discharge Pt advised to please follow up with primary care physician within the next 3-5 days. Pt was discharged with prescriptions for zofran and pepcid. Pt advised to please follow up with OBGYN within the next 3-5 days. Pt advised to return if her symptoms returned or worsened. - Date & Time of H&P Date of H&P: 10/11/18 Time of H&P: 10:30 Discharge Exam - Head Exam Head Exam: NORMAL INSPECTION - Eye Exam Eye Exam: EOMI - ENT Exam ENT Exam: Mucous Membranes Moist - Neck Exam Neck exam: Full Rom - Respiratory Exam Respiratory Exam: NORMAL BREATHING PATTERN, UNREMARKABLE. absent: Accessory Muscle Use, Respiratory Distress - Cardiovascular Exam Cardiovascular Exam: RRR, +S1, +S2. absent: Diastolic murmur, Systolic Murmur - GI/Abdominal Exam GI & Abdominal Exam: Normal Bowel Sounds, Soft, Unremarkable. absent: Tenderness - Extremities Exam Extremities exam: full ROM - Neurological Exam Neurological exam: Alert, Oriented x3 - Psychiatric Exam Psychiatric exam: Normal Affect, Normal Mood - Skin Skin Exam: Dry, Intact, Warm Discharge Plan - Discharge Medications Prescriptions: Famotidine [Pepcid] 20 mg PO BID #10 tab Ondansetron ODT [Zofran ODT] 8 mg PO Q8 PRN #6 odt PRN Reason: Nausea/Vomiting - Follow Up Plan Condition: FAIR Disposition: HOME/ ROUTINE Instructions: Hypokalemia (DC), Nausea and Vomiting, Adult (DC) Additional Instructions: 1. please follow up with your primary care physician within the next 3-5 days. 2. you are being discharged with prescriptions for zofran and pepcid 3. please follow up with your OBGYN within the next 3-5 days 4. have a soft well balanced diet of fruits and vegetables for the next 1 week 5. if your symptoms return or worsen, please go to the nearest emergency department <Milena Henson - Last Filed: 10/11/18 15:05> Provider - Provider Date of Admission: 10/10/18 11:19 Attending physician: Kandice Kebede, DO Hospital Course - Lab Results Lab Results: Most Recent Lab Values WBC 6.4 10^3/uL (4.5-11.0) 10/11/18 05:30 RBC 4.57 10^6/uL (3.5-6.1) 10/11/18 05:30 Hgb 13.4 g/dL (12.0-16.0) D 10/11/18 05:30 Hct 39.7 % (36.0-48.0) 10/11/18 05:30 MCV 86.9 fl (80.0-105.0) 10/11/18 05:30 MCH 29.3 pg (25.0-35.0) 10/11/18 05:30 MCHC 33.8 g/dl (31.0-37.0) 10/11/18 05:30 RDW 12.6 % (11.5-14.5) 10/11/18 05:30 Plt Count 240 10^3/uL (120.0-450.0) 10/11/18 05:30 MPV 9.5 fl (7.0-11.0) 10/11/18 05:30 Gran % 49.6 % (50.0-68.0) L 10/10/18 08:17 Lymph % (Auto) 35.9 % (22.0-35.0) H 10/10/18 08:17 [place] % (Auto) 11.4 % (1.0-6.0) H 10/10/18 08:17 Eos % (Auto) 2.8 % (1.5-5.0) 10/10/18 08:17 Baso % (Auto) 0.3 % (0.0-3.0) 10/10/18 08:17 Gran # 3.92 (1.4-6.5) 10/10/18 08:17 Lymph # (Auto) 2.8 (1.2-3.4) 10/10/18 08:17 [place] # (Auto) 0.9 (0.1-0.6) H 10/10/18 08:17 Eos # (Auto) 0.2 (0.0-0.7) 10/10/18 08:17 Baso # (Auto) 0.02 K/mm3 (0.0-2.0) 10/10/18 08:17 Sodium 135 mmol/L (132-148) 10/11/18 12:45 Potassium 3.4 mmol/L (3.6-5.0) L 10/11/18 12:45 Chloride 102 mmol/L (98-107) 10/11/18 12:45 Carbon Dioxide 26 mmol/L (21-33) 10/11/18 12:45 Anion Gap 11 (10-20) 10/11/18 12:45 BUN 9 mg/dL (7-21) 10/11/18 12:45 Creatinine 0.7 mg/dl (0.7-1.2) 10/11/18 12:45 Est GFR ( Amer) > 60 10/11/18 12:45 Est GFR (Non-Af Amer) > 60 10/11/18 12:45 Random Glucose 83 mg/dL (70-110) 10/11/18 12:45 Calcium 9.0 mg/dL (8.4-10.5) 10/11/18 12:45 Phosphorus 3.4 mg/dL (2.5-4.5) 10/11/18 05:30 Magnesium 2.0 mg/dL (1.7-2.2) 10/11/18 05:30 Total Bilirubin 2.1 mg/dL (0.2-1.3) H 10/10/18 08:17 AST 31 U/L (14-36) 10/10/18 08:17 ALT 34 U/L (7-56) 10/10/18 08:17 Alkaline Phosphatase 63 U/L (38-126) 10/10/18 08:17 Total Protein 7.9 g/dL (5.8-8.3) 10/10/18 08:17 Albumin 4.4 g/dL (3.0-4.8) 10/10/18 08:17 Globulin 3.5 gm/dL 10/10/18 08:17 Albumin/Globulin Ratio 1.2 (1.1-1.8) 10/10/18 08:17 Lipase 69 U/L (23-300) 10/10/18 08:17 Beta HCG, Quant 2438.50 mIU/mL (0-6.15) H 10/11/18 08:00 Urine Color Light yellow (YELLOW) 10/10/18 09:50 Urine Appearance Clear (CLEAR) 10/10/18 09:50 Urine pH 7.0 (4.7-8.0) 10/10/18 09:50 Ur Specific [place] 1.015 (1.005-1.035) 10/10/18 09:50 Urine Protein Negative mg/dL (<30 mg/dL) 10/10/18 09:50 Urine Glucose (UA) Negative mg/dL (NEGATIVE) 10/10/18 09:50 Urine Ketones 40 mg/dL (NEGATIVE) H 10/10/18 09:50 Urine Blood Large (NEGATIVE) H 10/10/18 09:50 Urine Nitrate Negative (NEGATIVE) 10/10/18 09:50 Urine Bilirubin Negative (NEGATIVE) 10/10/18 09:50 Urine Urobilinogen 1.0 E.U./dL (<1 E.U./dL) H 10/10/18 09:50 Ur Leukocyte Esterase Negative Luis Antonio/uL (NEGATIVE) 10/10/18 09:50 Urine RBC 2 - 5 /hpf (0-2) H 10/10/18 09:50 Urine WBC 0 - 2 /hpf (0-6) 10/10/18 09:50 Ur Epithelial Cells 1 - 3 /hpf (0-5) 10/10/18 09:50 Attending/Attestation - Attestation I have personally seen and examined this patient.: Yes I have fully participated in the care of the patient.: Yes I have reviewed all pertinent clinical information, including history, physical exam and plan: Yes Notes (Text): 10/11/18 15:01 Attending note; Patient seen and examined with resident. Patient denies any fevers, chills. Denies any nausea, vomiting. Denies any abdominal pain. Minimal vaginal bleeding. Patient is a 27 -year-old female is admitted for intractable nausea, vomiting, and abdominal pain. Patient had D&C done on Friday at [facility]. Currently nausea and vomiting is improving. 1. Intractable nausea and vomiting; started on IV fluids. Treated with IV Zofran. Improved. Started on liquid diet and advance slowly. Patient is tolerating diet. 2. Hypokalemia; status post IV and by mouth potassium supplementation. It resolved. 3. Status post ; minimal bleeding. Beta HCG is coming down. Patient is advised to follow-up with ORIENTOR at [facility]. 4. History of UTI; status post IV Rocephin treatment. Asymptomatic. Upon discharge the patient will follow up with PMD Dr. Stanley.
[2018-10-11] MEDS ORDERED: Potassium Chloride 20 mEq ER Tab PO SCH (15:00)
== END 2018-10-11 16:13 | disposition home or self-care (01) ==
LOC: ED 07:02 → ERH 11:19 → 3RNO 12:53
PROVIDERS: ADMIT Hospitalist; ATTEND Hospitalist
DX: O03.83 Metabolic disorder following complete or unspecified spontaneous abortion (principal); E87.6 Hypokalemia; O03.88 Urinary tract infection following complete or unspecified spontaneous abortion; O03.80 Unspecified complication following complete or unspecified spontaneous abortion; R11.2 Nausea with vomiting, unspecified; F12.90 Cannabis use, unspecified, uncomplicated
CPT/HCPCS: 36415; 74177; 80048; 80053; 81001; 83690; 83735; 84100; 84702; 85025; 85027; 93005; 96361; 96365; 96366; 96375; 96376; 99284; C9113; G0378; J0696; J1885; J2270; J2405; J3480; J7030; Q9967

== ENCOUNTER 2019-01-28 18:35 | Emergency (ER) | payer OTHER ==
[2019-01-28 18:36] VITALS: BMI 38.4
[2019-01-28] MEDS ORDERED: Sodium Chloride 0.9% 1,000 ML IV STA (18:58)
[2019-01-28 19:01] VITALS: BP 116/60; PULSE 62; RESP 20; TEMP 98.1; O2SAT 100
[2019-01-28 19:18] LABS: BASO # 0.02 K/mm3 (0.0-2.0); BASO % 0.2 % (0.0-3.0); EOS % 0.2 % (1.5-5.0); HEMOGLOBIN 13.2 g/dL (12.0-16.0); LYMPH # 1.6 (1.2-3.4); LYMPH % 17.1 % (22.0-35.0); MEAN CELL VOLUME 90.7 fl (80.0-105.0); MEAN CORPUSCULAR HEMOGLOBIN 30.1 pg (25.0-35.0); MEAN CORPUSCULAR HGB CONC 33.2 g/dl (31.0-37.0); MEAN PLATELET VOLUME 9.3 fl (7.0-11.0); MONO # 0.6 (0.1-0.6); MONO % 6.2 % (1.0-6.0); RBC 4.39 10^6/uL (3.5-6.1); RED CELL DISTRIBUTION WIDTH 12.6 % (11.5-14.5); WHITE BLOOD COUNT 9.5 10^3/uL (4.5-11.0)
[2019-01-28 19:26] LABS: INR 1.25; PROTHROMBIN TIME 13.9 SECONDS (9.4-12.5)
[2019-01-28 19:29] LABS: ALB/GLOB RATIO 1.2 (1.1-1.8); ALBUMIN 4.5 g/dL (3.0-4.8); ALT/SGPT 21 U/L (7-56); AST/SGOT 25 U/L (14-36); BLOOD UREA NITROGEN 11 mg/dL (7-21); CALCIUM 9.6 mg/dL (8.4-10.5); GFR NON-AFRICAN AMERICAN > 60; LIPASE 42 U/L (23-300)
[2019-01-28 19:39] LABS: TROPONIN I < 0.01 ng/mL
[2019-01-28] MEDS ORDERED: Potassium Chloride 20 mEq ER Tab PO STA ×2 (19:45→20:13)
--- NOTE | 2019-01-28 20:05 | ED PDOC ---
Arrival/HPI - General Chief Complaint: GI Problem Time Seen by Provider: 01/28/19 18:41 Historian: Patient - History of Present Illness Narrative History of Present Illness (Text): 01/29/19 03:02 28 y/o [id number] female presents to the ED c/o abdominal pain and vomiting x 1 week. Approximately 10 nonbloody bouts of emesis daily. Pt states she had an performed at a clinic in [place] on 01/27/19. She states the abdom inal pain is a generalized burning worst to the lower quadrants and is associated with light vaginal bleeding since the procedure. She has been unable to tolerate PO for the past week secondary to vomiting. Associated burning chest pain when vomiting. This has happened to the patient many times in the past. Denies fever, chills, urinary symptoms, diarrhea, SOB, palpitations, back pain, cough, or any other associated symptoms. Past Medical History - Provider Review Nursing Documentation Reviewed: Yes - Infectious Disease Hx of Infectious Diseases: None - Cardiac Hx Cardiac Disorders: No (denies) - Pulmonary Hx Respiratory Disorders: No (denies) - Neurological Hx Neurological Disorder: No (denies) - HEENT Hx HEENT Disorder: No (denies) - Renal Hx Renal Disorder: No (denies) - Endocrine/Metabolic Hx Endocrine Disorders: No (denies) - Hematological/Oncological Hx Blood Disorders: No (denies) - Integumentary Hx Dermatological Disorder: No (denies) - Musculoskeletal/Rheumatological Hx Falls: No - Gastrointestinal Hx Gastrointestinal Disorders: Yes (APPENDECTOMY ) - Genitourinary/Gynecological Hx Genitourinary Disorders: No ( x10,G13,[id number]) Hx Urinary Tract Infection: Yes - Psychiatric Hx Psychophysiologic Disorder: Yes Hx Bipolar Disorder: Yes Hx Substance Use: No - Surgical History Hx Appendectomy: Yes - Anesthesia Hx Anesthesia: Yes Hx Anesthesia Reactions: No Hx Malignant Hyperthermia: No Family/Social History - Physician Review Nursing Documentation Reviewed: Yes Family/Social History: No Known Family HX Smoking Status: Current Some Days Smoker Hx Alcohol Use: No Hx Substance Use: No Allergies/Home Meds Allergies/Adverse Reactions: Allergies oxcarbazepine [From Trileptal] Allergy (Verified 01/30/19 12:58) RASH quetiapine [From Seroquel] Allergy (Verified 01/30/19 12:58) RASH tramadol Allergy (Verified 01/30/19 12:58) RASH Review of Systems - Review of Systems Constitutional: Normal. absent: Fevers Eyes: Normal. absent: Vision Changes ENT: Normal. absent: Sore Throat, Sinus Congestion Respiratory: Normal. absent: SOB, Cough Cardiovascular: Chest Pain. absent: Syncope Gastrointestinal: Abdominal Pain, Nausea, Vomiting. absent: Stool Changes, Appetite Changes Genitourinary Female: Vaginal Bleeding Musculoskeletal: Back Pain Skin: Normal. absent: Rash, Cellulitis Neurological: Normal. absent: Headache, Dizziness, Focal Weakness Psychiatric: Anxiety Physical Exam Vital Signs Reviewed: Yes Vital Signs Temp Pulse Resp BP Pulse Ox 01/28/19 19:01 98.1 F 62 20 116/60 100 Temperature: Afebrile Blood Pressure: Normal Pulse: Regular Respiratory Rate: Normal Appearance: Positive for: Non-Toxic, Unkept, Uncomfortable Pain Distress: Moderate Mental Status: Positive for: Alert and Oriented X 3 - Systems Exam Head: Present: Atraumatic, Normocephalic Pupils: Present: PERRL Extroacular Muscles: Present: EOMI Conjunctiva: Present: Normal Mouth: Present: Moist Mucous Membranes Neck: Present: Normal Range of Motion. No: Meningeal Signs Respiratory/Chest: Present: Clear to Auscultation, Good Air Exchange. No: Respiratory Distress, Accessory Muscle Use Cardiovascular: Present: Regular Rate and Rhythm, Normal S1, S2, Peripheal Pulses Present Abdomen: Present: Tenderness (generalized, worst in LUQ, LLQ), Normal Bowel Sounds. No: Distention, Peritoneal Signs, Rebound, Guarding Back: Present: Normal Inspection. No: CVA Tenderness Upper Extremity: Present: Normal Inspection, Normal ROM, NORMAL PULSES, Neurovascularly Intact, Capillary Refill < 2s. No: Cyanosis, Edema, Temperature Abnormalties Lower Extremity: Present: Normal Inspection, Normal ROM Neurological: Present: GCS=15, Speech Normal, Motor Func Grossly Intact, Normal Sensory Function, Gait Normal Skin: Present: Warm, Dry, Normal Color. No: Rashes Psychiatric: Present: Alert, Oriented x 3, Anxious Medical Decision Making ED Course and Treatment: Initial Plan: * CBC, CMP * Coags * Lipase * Troponin * beta Hcg quant * Type and Screen * UA, POC preg * Transvaginal Ultrasound * IVF * Reglan Bloodwork reviewed, mild hypokalemia at 3.1. Will replete with 40mEq PO and 20mEq IV KCl. Lipase and LFTs wnl, no leukocytosis, no anemia Hcq quant elevated Patient refused transvaginal ultrasound and pelvic exam. Importance of diagnostic studies discussed. Pt continues to refuse. Pelvic ultrasound performed. Patient demanding to leave ED. Unwilling to wait for type and screen, ultrasound results, or further treatment/evaluation of symptoms. Patient also refused IV potassium per nurse Radha. 20:57 The patient is choosing to leave against medical advice. I have personally explained to the patient that choosing to do so may result in permanent bodily harm, disability, or . I have discussed at great length that without further evaluation and monitoring there may be unforeseen circumstances and/or deterioration causing permanent bodily harm or as a result of their hugo ce. The patient is alert, oriented, and shows the mental capacity to make clear decisions regarding the patients health care at this time. The patient continues to wish to leave against medical advice. In light of the patients decision to leave against medical advice, follow-up has been arranged and the patient is aware of the importance to following up as instructed. The patient has been advised that they should return to the emergency room immediately if they change their mind at any time, or if their condition begins to change or worsen in any way. - Lab Interpretations Lab Results: PT 13.9 SECONDS (9.4-12.5) H 01/28/19 19:08 INR 1.25 01/28/19 19:08 APTT 30.0 Seconds (26.9-38.3) 01/28/19 19:08 Troponin I < 0.01 ng/mL 01/28/19 19:08 Total Bilirubin 1.3 mg/dL (0.2-1.3) 01/28/19 19:08 AST 25 U/L (14-36) 01/28/19 19:08 ALT 21 U/L (7-56) 01/28/19 19:08 Alkaline Phosphatase 58 U/L (38-126) 01/28/19 19:08 Total Protein 8.1 g/dL (5.8-8.3) 01/28/19 19:08 Albumin 4.5 g/dL (3.0-4.8) 01/28/19 19:08 Globulin 3.6 gm/dL 01/28/19 19:08 Albumin/Globulin Ratio 1.2 (1.1-1.8) 01/28/19 19:08 Lipase 42 U/L (23-300) 01/28/19 19:08 01/28/19 19:08 01/28/19 19:08 Lab Results 01/28/19 19:08: Beta HCG, Quant 05677.00 H 01/28/19 19:08: Sodium 140, Potassium 3.1 L, Chloride 103, Carbon Dioxide 26, Anion Gap 15, BUN 11, Creatinine 0.6 L, Est GFR ( Amer) > 60, Est GFR (Non-Af Amer) > 60, Random Glucose 125 H, Calcium 9.6, Magnesium 2.1, Total Bilirubin 1.3, AST 25, ALT 21, Alkaline Phosphatase 58, Troponin I < 0.01, Total Protein 8.1, Albumin 4.5, Globulin 3.6, Albumin/Globulin Ratio 1.2, Lipase 42 01/28/19 19:08: PT 13.9 H, INR 1.25, APTT 30.0 01/28/19 19:08: WBC 9.5 D, RBC 4.39, Hgb 13.2, Hct 39.8, MCV 90.7 D, MCH 30.1, MCHC 33.2, RDW 12.6, Plt Count 263, MPV 9.3, Neut % (Auto) 76.3 H, Lymph % (Auto) 17.1 L, [place] % (Auto) 6.2 H, Eos % (Auto) 0.2 L, Baso % (Auto) 0.2, Lymph # (Auto) 1.6, [place] # (Auto) 0.6, Eos # (Auto) 0.0, Baso # (Auto) 0.02, Absolute Neuts (auto) 7.23 H I have reviewed the lab results: Yes - RAD Interpretation Narrative RAD Interpretations (Text): 01/28/19 21:00 Pelvic Ultrasound: Findings Uterus Measures 10.83 x 8.19 x 7.97 cm. Normal endometrial stripe is not identified. 5.08 x 4.6 x 4.31 cm heterogeneous mass is noted within endometrial canal and may represent a large blood clot. Consider short term follow up study. Cervix No cervical abnormality identified. Measuring 3.55 cm. Right ovary Measures 5.22 x 3.64 x 3.38 cm. No solid mass. Normal flow. Cyst measures 4.68 x 2.62 x 2.71 cm. Left ovary Measures 5.18 x 3.13 x 2.63 cm. No solid mass. Normal flow. Free fluid No significant free fluid noted. Other Findings None. Impression 1. 5.08 x 4.6 x 4.31 cm heterogeneous mass is noted within endometrial canal and may represent a large blood clot. Consider short term follow up study. 2. Right ovarian cyst. Electronically signed on Jan 28, 2019 8:59:11 PM EDT by: Jeremy Dunlap M.D., M.B.A., Certified By [employer] Trained MRI and CT Specialist Radiology Orders: 01/28/19 19:09 PELVIS ULTRASOUND [US] Stat [employer]: Radiologist - EKG Interpretation EKG Interpretation (Text): Rate 58; sinus bradycardia; normal intervals; no STEMI or other signs of acute ischemia Interpreted by ED Physician: Yes Type: 12 lead EKG - Medication Orders Current Medication Orders: Potassium Chloride (Potassium Chloride 20 Meq/100 Ml) 20 meq in 100 mls @ 50 mls/hr IVPB ONCE ONE Stop: 01/28/19 22:00 Discontinued Medications Sodium Chloride (Sodium Chloride 0.9%) 1,000 mls @ 999 mls/hr IV .Q1H1M STA Stop: 01/28/19 19:58 Last Admin: 01/28/19 19:20 Dose: 999 mls/hr eMAR Start Stop Document 01/28/19 19:20 SS (Rec: 01/28/19 19:20 SS [id number]) Intravenous Solution Start Date 01/28/19 Start Time 19:20 End Date 01/28/19 End time 20:20 Total Infusion Time 60 Metoclopramide HCl (Reglan) 10 mg IVP STAT STA Stop: 01/28/19 19:09 Last Admin: 01/28/19 19:20 Dose: 10 mg IVP Administration Document 01/28/19 19:20 SS (Rec: 01/28/19 19:21 SS [id number]) Charges for Administration # of IVP Administrations 1 Potassium Chloride (K-Dur 20 Meq Er Tab) 40 meq PO STAT STA Stop: 01/28/19 19:46 Disposition/Present on Arrival - Present on Arrival Any Indicators Present on Arrival: No History of DVT/PE: No History of Uncontrolled Diabetes: No Urinary Catheter: No History of Decub. Ulcer: No History Surgical Site Infection Following: None - Disposition Have Diagnosis and Disposition been Completed?: No Diagnosis: Hypokalemia, Left against medical advice, Abdominal pain, Nausea & vomiting Disposition: AGAINST MEDICAL ADVICE Disposition Time: 00:57 Patient Problems: Current Active Problems Problem Status Onset Abdominal pain Acute Vomiting Acute Condition: GUARDED Referrals: FAMILY PROVIDER,NO [Primary Care Provider] - Follow up with primary Forms: [employer] ([place])
--- NOTE | 2019-01-29 09:37 | US ---
Date of service: 01/28/2019 HISTORY: per patient, 2 days ago, abdominal pain COMPARISON: Transvaginal pelvic ultrasound performed 10/09/18 TECHNIQUE: Transabdominal pelvic ultrasound FINDINGS: UTERUS: Measures 10.8 x 8.2 x 8.0 cm. ENDOMETRIUM: The endometrial stripe is not identified. 5.1 x 4.6 x 4.3 cm heterogeneous mass within the endometrial canal CERVIX: No cervical abnormality identified. RIGHT OVARY: Measures 5.2 x 3.6 x 3.4 cm. Blood flow is demonstrated. 4.7 x 2.6 x 2.7 cm cyst. LEFT OVARY: Measures 5.2 x 3.1 x 2.6 cm. Blood flow is demonstrated. FREE FLUID: No significant free fluid noted. OTHER FINDINGS: None. IMPRESSION: Heterogeneous appearance of the endometrium with 5.1 x 4.6 x 4.3 cm heterogeneity within the endometrial canal, possibly blood products. Retained products of conception are not excluded. Recommend clinical correlation and close interval follow-up as indicated. 4.7 x 2.6 x 2.7 cm cyst; recommend further evaluation with 6 week follow-up ultrasound. Preliminary impression was provided by [employer]
--- NOTE | 2019-01-29 15:11 | CARD ---
APPROVED REPORT Date of service: 01/28/2019 EKG Measurement Heart [id number] MI 134P [id number] <Conclusion> Sinus bradycardia High Voltage can be Normal for Young Age.
== END 2019-01-28 21:22 | disposition left against medical advice (07) ==
LOC: ED 18:35
DX: E87.6 Hypokalemia (principal); R11.2 Nausea with vomiting, unspecified; R10.9 Unspecified abdominal pain
CPT/HCPCS: 76856; 80053; 83690; 83735; 84484; 84702; 85025; 85610; 85730; 93005; 96361; 96374; 96375; 99284; J2405; J2765; J7030

== ENCOUNTER 2019-01-30 05:48 | Inpatient (IN) | payer OTHER ==
--- NOTE | 2019-01-30 06:05 | ED PDOC ---
Arrival/HPI - General Chief Complaint: Abdominal Pain Time Seen by Provider: 01/30/19 05:55 Historian: Patient - History of Present Illness Narrative History of Present Illness (Text): 01/30/19 06:05 Leia Humphrey is a 28 year old female, whose past medical history includes appendectomy and anxiety, who presents to the ED complaining of intermittent upper abdominal/chest discomfort with associated nausea and vomiting for over a week. Patient was initially seen on 01/29/2019 for similar complaints and was offered hospital admission but left against medical advice. Patient also reports she underwent an at [facility] 4 days ago. Patient denies any fever, chills, chest pain, shortness of breath, diarrhea, urinary symptoms, back pain, neck pain, headache, dizziness, or any other complaints. Time/Duration: 1 week Symptom Onset: Gradual Symptom Course: Unchanged Activities at Onset: Light Context: Home Past Medical History - Provider Review Nursing Documentation Reviewed: Yes Primary Care Physician: Kasey Stanley DO - Infectious Disease Hx of Infectious Diseases: None - Cardiac Hx Cardiac Disorders: No (denies) - Pulmonary Hx Respiratory Disorders: No (denies) - Neurological Hx Neurological Disorder: No (denies) - HEENT Hx HEENT Disorder: No (denies) - Renal Hx Renal Disorder: No (denies) - Endocrine/Metabolic Hx Endocrine Disorders: No (denies) - Hematological/Oncological Hx Blood Disorders: No (denies) - Integumentary Hx Dermatological Disorder: No (denies) - Musculoskeletal/Rheumatological Hx Falls: No - Gastrointestinal Hx Gastrointestinal Disorders: Yes (APPENDECTOMY ) - Genitourinary/Gynecological Hx Genitourinary Disorders: No ( x10,G13,[id number]) Hx Urinary Tract Infection: Yes - Psychiatric Hx Psychophysiologic Disorder: Yes Hx Bipolar Disorder: Yes Hx Substance Use: No - Surgical History Hx Appendectomy: Yes - Anesthesia Hx Anesthesia: Yes Hx Anesthesia Reactions: No Hx Malignant Hyperthermia: No Family/Social History - Physician Review Nursing Documentation Reviewed: Yes Family/Social History: Unknown Family HX Smoking Status: Current Some Days Smoker Hx Alcohol Use: No Hx Substance Use: No Allergies/Home Meds Allergies/Adverse Reactions: Allergies oxcarbazepine [From Trileptal] Allergy (Verified 01/30/19 06:01) RASH quetiapine [From Seroquel] Allergy (Verified 01/30/19 06:01) RASH tramadol Allergy (Verified 01/30/19 06:01) RASH Review of Systems - Physician Review All systems were reviewed & negative as marked: Yes - Review of Systems Constitutional: Normal. absent: Fevers Eyes: Normal ENT: Normal Respiratory: Normal. absent: SOB, Cough Cardiovascular: Normal. absent: Chest Pain Gastrointestinal: Abdominal Pain, Nausea, Vomiting. absent: Diarrhea Genitourinary Female: Normal. absent: Dysuria, Frequency, Hematuria, Urine Output Changes Musculoskeletal: Normal. absent: Back Pain, Neck Pain Skin: Normal. absent: Rash Neurological: Normal. absent: Headache, Dizziness Endocrine: Normal Hemo/Lymphatic: Normal Psychiatric: Normal Physical Exam Vital Signs Reviewed: Yes Vital Signs Temp Pulse Resp BP Pulse Ox 01/30/19 06:01 97.9 F 72 18 138/105 H 98 Temperature: Afebrile Blood Pressure: Normal Pulse: Regular Respiratory Rate: Normal Appearance: Positive for: Well-Appearing, Non-Toxic, Comfortable Pain Distress: None Mental Status: Positive for: Alert and Oriented X 3 - Systems Exam Head: Present: Atraumatic, Normocephalic Pupils: Present: PERRL Extroacular Muscles: Present: EOMI Conjunctiva: Present: Normal Mouth: Present: Moist Mucous Membranes Neck: Present: Normal Range of Motion Respiratory/Chest: Present: Clear to Auscultation, Good Air Exchange. No: Respiratory Distress, Accessory Muscle Use Cardiovascular: Present: Regular Rate and Rhythm, Normal S1, S2. No: Murmurs Abdomen: Present: Tenderness (Mid upper abdominal tenderness). No: Distention, Peritoneal Signs Back: Present: Normal Inspection Upper Extremity: Present: Normal Inspection. No: Cyanosis, Edema Lower Extremity: Present: Normal Inspection. No: Edema Neurological: Present: GCS=15, CN II-XII Intact, Speech Normal Skin: Present: Warm, Dry, Normal Color. No: Rashes Psychiatric: Present: Alert, Oriented x 3, Normal Insight, Normal Concentration Medical Decision Making ED Course and Treatment: 01/30/19 06:05 Impression: 28 year old female complaining of upper abdominal/chest discomfort, nausea, and vomiting for over a week. Plan: -- EKG -- Chest X-ray -- Labs, cardiac enzymes, lioase -- Urinalysis -- IV fluids -- Toradol -- Reglan -- Benadryl -- Reassess and disposition Prior Visits: Notes and results from previous visits were reviewed. Progress Notes: 01/30/19 06:55 Case endorsed to /pending labs/U/S/reassess/final disposition Disposition/Present on Arrival - Present on Arrival Any Indicators Present on Arrival: No History of DVT/PE: No History of Uncontrolled Diabetes: No Urinary Catheter: No History of Decub. Ulcer: No History Surgical Site Infection Following: None - Disposition Have Diagnosis and Disposition been Completed?: No Diagnosis: Abdominal pain, Vomiting Disposition Time: 07:00 Patient Problems: Current Active Problems Problem Status Onset Abdominal pain Acute Vomiting Acute Condition: STABLE Referrals: Kasey Stanley DO [Primary Care Provider] - Follow up with primary Forms: [employer] ([place])
[2019-01-30] MEDS ORDERED: Sodium Chloride 0.9% 1,000 ML IV STA (06:19)
[2019-01-30] MEDS ORDERED: DiphenhydrAMINE 50 mg/ml Inj IVP ONE (06:19)
[2019-01-30 06:37] LABS: HEMOGLOBIN 14.5 g/dL (12.0-16.0); MEAN CELL VOLUME 89.1 fl (80.0-105.0); MEAN CORPUSCULAR HEMOGLOBIN 30.5 pg (25.0-35.0); MEAN CORPUSCULAR HGB CONC 34.3 g/dl (31.0-37.0); MEAN PLATELET VOLUME 9.3 fl (7.0-11.0); RBC 4.75 10^6/uL (3.5-6.1); RED CELL DISTRIBUTION WIDTH 12.2 % (11.5-14.5); WHITE BLOOD COUNT 10.2 10^3/uL (4.5-11.0)
[2019-01-30 06:52] LABS: INR 1.27; PARTIAL THROMBOPLASTIN TIME 30.8 Seconds (26.9-38.3); PROTHROMBIN TIME 14.3 SECONDS (9.4-12.5)
[2019-01-30 06:54] LABS: TROPONIN I < 0.01 ng/mL
[2019-01-30 06:58] LABS: ALB/GLOB RATIO 1.2 (1.1-1.8); ALBUMIN 4.5 g/dL (3.0-4.8); ALT/SGPT 24 U/L (7-56); AST/SGOT 26 U/L (14-36); BLOOD UREA NITROGEN 11 mg/dL (7-21); CALCIUM 9.7 mg/dL (8.4-10.5); GFR NON-AFRICAN AMERICAN > 60; LIPASE 63 U/L (23-300)
[2019-01-30 07:12] LABS: URINE BILIRUBIN SMALL (NEGATIVE); URINE BLOOD LARGE (NEGATIVE); URINE GLUCOSE (UA) NEGATIVE (NEGATIVE); URINE LEUKOCYTE ESTERASE TRACE Leu/uL (NEGATIVE); URINE PROTEIN 100 mg/dL (<30 mg/dL)
[2019-01-30 07:41] LABS: URINE APPEARANCE SLIGHT-CLOUDY (CLEAR); URINE COLOR DARK YELLOW (YELLOW)
[2019-01-30 07:48] LABS: URINE BACTERIA MANY /hpf; URINE RBC TNTC /hpf (0-2)
[2019-01-30 08:13] LABS: CK-MB 0.5 ng/mL (0.0-3.6)
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
--- NOTE | 2019-01-30 10:45 | RAD ---
Date of service: 01/30/2019 HISTORY: pain COMPARISON: No prior. TECHNIQUE: 1 view obtained. FINDINGS: LUNGS: Pulmonary vascular congestion. No active pulmonary disease. PLEURA: No significant pleural effusion identified, no pneumothorax apparent. CARDIOVASCULAR: No aortic atherosclerotic calcification present. Cardiomediastinal silhouette enlarged. OSSEOUS STRUCTURES: No significant abnormalities. VISUALIZED UPPER ABDOMEN: Normal. OTHER FINDINGS: None. IMPRESSION: Cardiomegaly with pulmonary vascular congestion.
--- NOTE | 2019-01-30 11:25 | US ---
Date of service: 01/30/2019 HISTORY: abdominal pain COMPARISON: Correlations made to CT scan of the abdomen pelvis dated 10/10/2018 TECHNIQUE: Sonographic evaluation of the abdomen. FINDINGS: LIVER: Measures 17 cm. Normal echogenicity of the liver parenchyma. No mass. No intrahepatic bile duct dilatation. Main portal vein demonstrates normal directional flow. GALLBLADDER: Cholelithiasis with sludge without gallbladder wall thickening or pericholecystic fluid. Sonographic Mccord's sign was not elicited. COMMON BILE DUCT: Measures 4 mm. No stones. No dilatation. PANCREAS: Unremarkable as visualized. No mass. No ductal dilatation. RIGHT KIDNEY: Measures 11.7 x 4.7 x 5.2cm. Normal echogenicity. No calculus, mass, or hydronephrosis. LEFT KIDNEY: Measures 11.4 x 5.6 x 4.3cm. Normal echogenicity. No calculus, mass, or hydronephrosis. SPLEEN: Normal in size and contour. No mass. AORTA: No aneurysmal dilatation. IVC: Unremarkable. OTHER FINDINGS: None. IMPRESSION: Cholelithiasis without sonographic evidence for acute cholecystitis.
--- NOTE | 2019-01-30 15:02 | CARD ---
APPROVED REPORT Date of service: 01/30/2019 EKG Measurement Heart [id number] <Conclusion> Normal sinus rhythm Possible Left atrial enlargement Borderline ECG
[2019-01-30] MEDS ORDERED: Pneumococcal 23-Valent Vaccine IM ONE (15:24)
[2019-01-30 15:25] VITALS: BMI 37.8
[2019-01-30] MEDS: Lactated Ringer's 1,000 ML IV SCH (16:31)
--- NOTE | 2019-01-31 02:24 | CP.PCM.PN ---
Subjective - Date & Time of Evaluation Date of Evaluation: 01/30/19 Time of Evaluation: 20:00 Objective - Vital Signs/Intake and Output Vital Signs (last 24 hours): Temp Pulse Resp BP Pulse Ox 98.7 F 70 18 171/84 H 100 01/30/19 22:00 01/30/19 22:00 01/30/19 22:00 01/30/19 22:00 01/30/19 22:00 Intake and Output: 01/30/19 01/31/19 18:59 06:59 Intake Total 120 Balance 120 - Medications Medications: Current Medications Famotidine (Pepcid) 20 mg IVP DAILY LINDA Lactated Ringer's (Lactated Ringer's) 1,000 mls @ 100 mls/hr IV .Q10H LINDA Last Admin: 01/30/19 16:31 Dose: 100 mls/hr Metoclopramide HCl (Reglan) 10 mg IVP ACHS PRN PRN Reason: Nausea/Vomiting Last Admin: 01/30/19 13:14 Dose: 10 mg - Labs Labs: 01/30/19 06:20 01/30/19 06:20 PT 14.3 SECONDS (9.4-12.5) H 01/30/19 06:20 INR 1.27 01/30/19 06:20 APTT 30.8 Seconds (26.9-38.3) 01/30/19 06:20
[2019-01-31 07:36] LABS: BASO # 0.01 K/mm3 (0.0-2.0); BASO % 0.1 % (0.0-3.0); EOS # 0.1 (0.0-0.7); EOS % 0.6 % (1.5-5.0); HEMOGLOBIN 13.8 g/dL (12.0-16.0); LYMPH # 2.5 (1.2-3.4); LYMPH % 31.4 % (22.0-35.0); MEAN CELL VOLUME 88.6 fl (80.0-105.0); MEAN CORPUSCULAR HEMOGLOBIN 30.1 pg (25.0-35.0); MEAN PLATELET VOLUME 9.5 fl (7.0-11.0); MONO # 0.8 (0.1-0.6); MONO % 9.8 % (1.0-6.0); RBC 4.58 10^6/uL (3.5-6.1); RED CELL DISTRIBUTION WIDTH 12.3 % (11.5-14.5)
[2019-01-31 08:11] LABS: ALB/GLOB RATIO 1.2 (1.1-1.8); ALBUMIN 4.4 g/dL (3.0-4.8); ALT/SGPT 15 U/L (7-56); AST/SGOT 23 U/L (14-36); BLOOD UREA NITROGEN 9 mg/dL (7-21); CALCIUM 9.1 mg/dL (8.4-10.5); GFR NON-AFRICAN AMERICAN > 60
[2019-01-31] MEDS ORDERED: Potassium Chloride 40 mEq/30 ml LIQ UD PO STA (08:27)
[2019-01-31] MEDS: Lactated Ringer's 1,000 ML IV SCH (09:15)
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
--- NOTE | 2019-01-31 15:23 | RAD ---
Date of service: 01/31/2019 HISTORY: constipation COMPARISON: CT scan of the abdomen pelvis dated 10/10/2018. TECHNIQUE: 1 view obtained. FINDINGS: BOWEL: Normal. No obstruction. No free air. BONES: Normal. OTHER FINDINGS: Right lower quadrant surgical clips. IMPRESSION: No active disease.
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
[2019-01-31] MEDS ORDERED: DiphenhydrAMINE 50 mg/ml Inj IVP STA (23:26)
[2019-02-01 05:53] LABS: BASO # 0.01 K/mm3 (0.0-2.0); BASO % 0.1 % (0.0-3.0); EOS # 0.1 (0.0-0.7); HEMOGLOBIN 14.9 g/dL (12.0-16.0); LYMPH # 2.3 (1.2-3.4); LYMPH % 29.5 % (22.0-35.0); MEAN CELL VOLUME 88.7 fl (80.0-105.0); MEAN CORPUSCULAR HEMOGLOBIN 30.7 pg (25.0-35.0); MEAN CORPUSCULAR HGB CONC 34.6 g/dl (31.0-37.0); MONO % 12.3 % (1.0-6.0); RBC 4.86 10^6/uL (3.5-6.1); RED CELL DISTRIBUTION WIDTH 12.2 % (11.5-14.5); WHITE BLOOD COUNT 7.7 10^3/uL (4.5-11.0)
[2019-02-01 06:17] LABS: ALB/GLOB RATIO 1.2 (1.1-1.8); ALBUMIN 4.3 g/dL (3.0-4.8); ALT/SGPT 25 U/L (7-56); AST/SGOT 33 U/L (14-36); BLOOD UREA NITROGEN 11 mg/dL (7-21); CALCIUM 9.4 mg/dL (8.4-10.5); GFR NON-AFRICAN AMERICAN > 60
[2019-02-01] MEDS ORDERED: Potassium Chloride 20 mEq ER Tab PO ONE (07:22)
--- NOTE | 2019-02-01 09:42 | PN ---
DATE: 02/01/2019 SUBJECTIVE: I saw Ms. Humphrey this morning. She is a 28-year-old black female here with complaints of recurrent nausea, vomiting, and epigastric pain. At the bedside this morning, the patient indicates no significant change in symptoms and was still unable to handle liquids or solid foods. The patient complaints of "sore throat." Again at the bedside this morning, the patient is regurgitating saliva, but no vomiting per se. She rates epigastric pain roughly at 4 to 5/10. PHYSICAL EXAMINATION VITAL SIGNS: I reviewed this patient's vital signs. HEENT: Noncontributory. LUNGS: Clear to auscultation. HEART: Regular rate and rhythm. ABDOMEN: Tender in the epigastric area. LABORATORY DATA: Review of the laboratory data indicate stable H and H. Chemistry noncontributory except for low potassium. I reviewed the abdominal film, which was within normal limits. ASSESSMENT AND PLAN: This is a 28-year-old black female with complaints of abdominal pain, nausea, and vomiting, etiology uncertain. The patient does not practice antireflux precautions. Discussed for an upper endoscopy later around this morning. She was advised of the risks, benefits, and alternatives of procedure including risk of hemorrhage, perforation and surgery. She will sign the consent when she comes down to the endoscopy unit. Kel Silva DO, PhD LEEANN
[2019-02-01] MEDS ORDERED: Potassium Chloride 20 mEq ER Tab PO SCH (10:00)
[2019-02-01] MEDS: Lactated Ringer's 1,000 ML IV SCH (10:52)
--- NOTE | 2019-02-01 11:08 | US ---
Date of service: 02/01/2019 HISTORY: abdominal pain, recent COMPARISON: None available. TECHNIQUE: Transabdominal and transvaginal FINDINGS: UTERUS: Measures 10.7 x 7.0 x 8.6 cm. Normal in size and appearance. No fibroid or other mass lesion seen. ENDOMETRIUM: Measures 34 mm in diameter. Heterogeneous endometrial soft tissue density likely representing either retained products of conception, 1 week status post TOP, versus blood clot. No blood flow demonstrated within this soft tissue on color Doppler interrogation. CERVIX: No cervical abnormality identified. RIGHT OVARY: Measures 4.4 x 5.1 x 3.0 cm. No solid mass. Normal flow. Simple cyst, 2.0 x 3.0 x 4.0 cm. Likely physiologic. LEFT OVARY: Measures 1.7 x 3.8 x 4.2 cm. No solid mass. Normal flow. FREE FLUID: No significant free fluid noted. OTHER FINDINGS: None. IMPRESSION: Thickened endometrium with heterogeneous soft tissue density within the endometrial cavity. One week status post TOP, reportedly. This material represents either retained products of conception or blood clot. Please note that no blood flow is demonstrated within the soft tissue on color Doppler interrogation. Incidental 4 mm right ovarian cyst, likely physiologic.
[2019-02-01] MEDS ORDERED: Propofol 10 mg/ml Inj (20 ML) ONE ×2 (12:11→12:18)
[2019-02-01] MEDS ORDERED: Sodium Chloride 0.9% 1,000 ML IV SCH (12:30)
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
[2019-02-01] MEDS: Sucralfate 1 gm/10 ml Oral Susp UD PO SCH ×2 (17:41→21:56)
[2019-02-01] MEDS: Potassium Chloride 40 MEQ in Lactated Ringer's 1,000 ML IV SCH (18:35)
[2019-02-02] MEDS: Sucralfate 1 gm/10 ml Oral Susp UD PO SCH (05:50)
[2019-02-02] MEDS: Potassium Chloride 40 MEQ in Lactated Ringer's 1,000 ML IV SCH (06:47)
--- NOTE | 2019-02-02 07:32 | PN ---
DATE: 02/02/2019 SUBJECTIVE: I saw Ms. Humphrey this morning. She is a 28-year-old black female with complaints of nausea, vomiting, and abdominal pain. The patient had an endoscopy procedure yesterday and found to have evidence of gastritis, duodenitis, also numerous ulcerations extending from the area of the Z-line all the way up the distal third of the esophagus. The ulcerations were linear and also circumferential. The patient was prescribed Carafate suspension after the procedure yesterday and at the bedside this morning the patient is in good spirits, pain is less. Overall feels improved. PHYSICAL EXAMINATION VITAL SIGNS: I reviewed this patient's vital signs. HEENT: Noncontributory. LUNGS: Clear to auscultation. HEART: Regular rhythm. ABDOMEN: twister frame tender in the epigastric area, but slightly less. LABORATORY DATA: Pending for this morning. Biopsy is also pending for this patient. Plan to do an endoscopy yesterday. ASSESSMENT AND PLAN: This is a 28-year-old black female admitted with nausea, vomiting, and abdominal pain, found to have multiple ulcerations in the distal third of the esophagus as well as at the Z-line. She has evidence of gastritis, duodenitis. Plan for her would consists of PPI therapy as well as Carafate suspension, which should continue over period several weeks. The patient was advised of Carafate dosing, which consists of a teaspoon or tablespoon 30 minutes after meals and at bedtime, not before. The patient was also advised to avoid liquids or solids after each dose. She was advised also to practice dietary discretion as well as antireflux precautions. The latter reviewed multiple times at the bedside. Kel Silva DO, PhD LEEANN
[2019-02-02 07:41] LABS: BASO # 0.02 K/mm3 (0.0-2.0); BASO % 0.3 % (0.0-3.0); EOS # 0.1 (0.0-0.7); EOS % 1.4 % (1.5-5.0); HEMOGLOBIN 13.9 g/dL (12.0-16.0); LYMPH # 3.4 (1.2-3.4); LYMPH % 45.6 % (22.0-35.0); MEAN CELL VOLUME 90.4 fl (80.0-105.0); MEAN CORPUSCULAR HEMOGLOBIN 30.4 pg (25.0-35.0); MEAN CORPUSCULAR HGB CONC 33.7 g/dl (31.0-37.0); MEAN PLATELET VOLUME 9.1 fl (7.0-11.0); MONO # 0.7 (0.1-0.6); MONO % 9.2 % (1.0-6.0); RBC 4.57 10^6/uL (3.5-6.1); RED CELL DISTRIBUTION WIDTH 12.5 % (11.5-14.5); WHITE BLOOD COUNT 7.4 10^3/uL (4.5-11.0)
[2019-02-02 07:43] VITALS: BP 122/72; PULSE 74; RESP 20; TEMP 98; O2SAT 99
[2019-02-02 08:00] LABS: ALB/GLOB RATIO 1.2 (1.1-1.8); ALBUMIN 3.9 g/dL (3.0-4.8); ALT/SGPT 17 U/L (7-56); AST/SGOT 20 U/L (14-36); BLOOD UREA NITROGEN 12 mg/dL (7-21); GFR NON-AFRICAN AMERICAN > 60
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
== END 2019-02-02 11:49 | disposition left against medical advice (07) | DRG 176 ==
LOC: ED 05:48 → ERH 08:29 → 5RSO 09:24
PROVIDERS: ADMIT Hospitalist; ATTEND Internal Medicine
PROC: 0DB68ZX Excision of Stomach, Via Natural or Artificial Opening Endoscopic, Diagnostic (ICD-10-PCS; principal; 2019-02-01 11:15)
DX: K22.10 Ulcer of esophagus without bleeding (principal); E87.6 Hypokalemia; K29.70 Gastritis, unspecified, without bleeding; K29.80 Duodenitis without bleeding; F32.9 Major depressive disorder, single episode, unspecified; F41.9 Anxiety disorder, unspecified; F12.90 Cannabis use, unspecified, uncomplicated; F60.9 Personality disorder, unspecified; K59.00 Constipation, unspecified; K80.20 Calculus of gallbladder without cholecystitis without obstruction; R82.90 Unspecified abnormal findings in urine